=== PATIENT | female | born 1970 | race Caucasian/White ===

== ENCOUNTER 2019-05-26 00:04 | Observation (INO) | payer SELFPAY ==
[2019-05-26 01:29] LABS: Hemoglobin 10.9 g/dL (12.0-16.0); Mean Corpuscular HGB CONC 31.7 g/dL (32.0-36.0); Mean Corpuscular Hemoglobin 24.5 pg (27.0-31.0); Mean Corpuscular Volume 77.3 fL (78.0-98.0); Mean Platelet Volume 7.9 fL (7.4-10.4); Platelet Count 511 thou/uL (130-400); Red Blood Cell (RBC) Count 4.46 mill/uL (4.20-5.40); White Blood Cell (WBC) Count 10.8 thou/uL (4.8-10.8)
[2019-05-26 01:35] LABS: Band 17 % (5-11); Eosinophils 1 % (0-10); Lymphocytes 19 % (21-51); MDiff Complete? YES; Monocytes 9 % (0-10); Neutrophil 54 % (42-75); Platelet Morphology Comment Appears Increased
[2019-05-26 01:44] LABS: Acetaminophen Less than 6.0 mcg/mL (10.0-30.0); Alcohol Less than 10 mg/dL (Less than 10); Salicylate Less than 8.0 mg/dL (15.0-30.0)
[2019-05-26 01:46] LABS: ALT (SGPT) 15 U/L (8-55); AST (SGOT) 19 U/L (5-34); Albumin 2.6 g/dL (3.5-5.0); Alkaline Phosphatase 130 U/L (40-110); Anion Gap 15 mmol/L (10-20); BUN (Urea Nitrogen) 24 mg/dL (7.0-18.7); Bilirubin, Total 0.5 mg/dL (0.2-1.2); CK (CPK) 35 U/L (29-168); Calc. Creatinine Clearance 0 mL/min (70-130); Calcium 8.3 mg/dL (7.8-10.44); Carbon Dioxide 27 mmol/L (22-29); Chloride 89 mmol/L (98-107); Estimated GFR-MDRD 54; Globulin 3.2 g/dL (2.4-3.5); Glucose 108 mg/dL (70-105); Lipase 50 U/L (8-78); Protein, Total 5.8 g/dL (6.0-8.3); Sodium 128 mmol/L (136-145)
[2019-05-26 01:55] LABS: Potassium 2.7 mmol/L (3.5-5.1)
[2019-05-26] MEDS ORDERED: Potassium Chloride 20 MEQ TAB ONE (02:18)
[2019-05-26] MEDS ORDERED: Potassium Chloride 20 MEQ in Premix Bag 1 BAG IVPB SCH (02:30)
[2019-05-26] MEDS ORDERED: traMADol HCl 50 MG TAB ONE (04:13)
[2019-05-26 04:16] LABS: Bacteria/HPF 3+ HPF (None Seen); Bilirubin Negative (Negative); Blood, Urine Negative (Negative); Clarity Turbid (Clear); Glucose, Urine (Dipstick) Normal (Negative); Leukocyte 250 Leu/uL (Negative); Nitrite Negative (Negative); Protein, Urine (Dipstick) Negative (Neg-Trace); RBC/HPF 0-3 HPF (0-3); Urobilinogen Normal mg/dL (Less than 2); WBC/HPF None Seen HPF (0-3); Waxy Cast 0-3 LPF (None Seen)
[2019-05-26 04:17] LABS: Calcium Oxalate Crystals Rare HPF (None Seen)
[2019-05-26 04:18] LABS: Pregnancy Test - Urine (BHCG) Negative (Negative); Pregu Control Background? CLEAR/WHITE (CLR/WHITE); Pregu Control Bar Appear? YES (CONTROL BAR); Specific Gravity 1.008 (1.002-1.036)
[2019-05-26 04:26] LABS: Medtox Reader # READER 4
[2019-05-26 04:27] LABS: Amphetamine Detected (NotDetected); Barbiturates Screen Not Detected (NotDetected); Benzodiazepine Screen Not Detected (NotDetected); Cocaine Metabolite Screen Not Detected (NotDetected); Medtox Control Line Valid? VALID (VALID); Methadone Not Detected (NotDetected); Methamphetamine Not Detected (NotDetected); Opiate Screen Not Detected (NotDetected); Oxycodone Screen Not Detected (NotDetected); Phencyclidine (PCP) Not Detected (NotDetected); THC/Cannabinoid Screen Not Detected (NotDetected); Tricyclic Screen Not Detected (NotDetected)
[2019-05-26] MEDS ORDERED: Acetaminophen 500 MG TAB PO PRN (05:15)
[2019-05-26] MEDS ORDERED: hydrALAZINE 20 MG/ML VIAL SLOW IVP PRN (05:15)
[2019-05-26] MEDS ORDERED: Ondansetron ODT 4 MG TAB PO PRN (05:15)
[2019-05-26] MEDS ORDERED: Ondansetron PF 4 MG/2 ML Vial IVP PRN (05:15)
[2019-05-26] MEDS ORDERED: Loperamide HCl 2 MG CAP PO PRN ×2 (05:15)
[2019-05-26] MEDS: NS 0.9% w/ 40 MEQ KCL 1,000 ML IV SCH ×2 (06:45→15:14)
[2019-05-26] MEDS: cefTRIAXone\\ROCEPHIN 1 GM in Sodium Chloride 0.9% 100 ML IVPB SCH (06:46)
--- NOTE | 2019-05-26 07:26 | RAD ---
XR Shoulder Lt 3 View STANDARD History: Shoulder pain Comparison: None. Findings: No acute fracture or malalignment. Low-grade degenerative disease acromioclavicular joint. Soft tissues are unremarkable. Impression: No acute osseous abnormality.
--- NOTE | 2019-05-26 07:26 | RAD ---
XR Chest 1 View Portable History: Chest pain Comparison: None. Findings: Lungs are clear. No pneumothorax or effusion. Cardiac silhouette and mediastinal contours a re within normal limits. No acute osseous normality. Impression: No acute intrathoracic abnormality.
[2019-05-26 07:43] VITALS: BMI 28.9
[2019-05-26 08:32] LABS: Hemoglobin 9.7 g/dL (12.0-16.0); Mean Corpuscular HGB CONC 31.8 g/dL (32.0-36.0); Mean Corpuscular Hemoglobin 24.8 pg (27.0-31.0); Mean Corpuscular Volume 77.9 fL (78.0-98.0); Mean Platelet Volume 7.5 fL (7.4-10.4); Platelet Count 418 thou/uL (130-400); RBC Distribution Width 16.9 % (11.5-14.5); Red Blood Cell (RBC) Count 3.91 mill/uL (4.20-5.40); White Blood Cell (WBC) Count 5.9 thou/uL (4.8-10.8)
[2019-05-26 08:51] LABS: ALT (SGPT) 12 U/L (8-55); AST (SGOT) 14 U/L (5-34); Albumin 2.2 g/dL (3.5-5.0); Alkaline Phosphatase 121 U/L (40-110); Anion Gap 11 mmol/L (10-20); BUN (Urea Nitrogen) 16 mg/dL (7.0-18.7); Bilirubin, Total 0.2 mg/dL (0.2-1.2); Calc. Creatinine Clearance 97 mL/min (70-130); Calcium 7.5 mg/dL (7.8-10.44); Carbon Dioxide 23 mmol/L (22-29); Chloride 96 mmol/L (98-107); Estimated GFR-MDRD 73; Globulin 2.7 g/dL (2.4-3.5); Glucose 124 mg/dL (70-105); Potassium 3.1 mmol/L (3.5-5.1); Protein, Total 4.9 g/dL (6.0-8.3); Sodium 127 mmol/L (136-145)
[2019-05-26 09:15] LABS: Anisocytosis MODERATE=16-30 cells (100X) (0-5/hpf); Band 2 % (5-11); Hypochromia SLIGHT = 6-15 cells (100X) (0-5/hpf); Lymphocytes 26 % (21-51); MDiff Complete? YES; Microcytosis MODERATE=15-30 cells (100X) (0-5/hpf); Monocytes 12 % (0-10); Neutrophil 58 % (42-75); Platelet Morphology Comment Appears Increased; Polychromasia SLIGHT = 2-3 cells (100X) (0-2/hpf); Reactive Lymphocytes 2 % (0-10); Schistocytes SLIGHT = 2-5 cells (100X) (0-1/hpf)
[2019-05-26] MEDS: Famotidine 20 MG TAB PO SCH ×2 (09:46→20:55)
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
[2019-05-26] MEDS: Potassium Chloride 20 MEQ TAB PO SCH ×2 (15:16→18:36)
--- NOTE | 2019-05-26 18:50 | CON ---
DATE OF CONSULTATION: 05/26/2019 SERVICE: Nephrology. REQUESTING PHYSICIAN: Dr. Tatiana Haney. REASON FOR CONSULTATION: Hyponatremia and hypokalemia. HISTORY OF PRESENT ILLNESS: A 48-year-old female with past medical history significant for diabetes, hypertension, fibromyalgia, and attention deficit hyperactivity disorder amongst other, who was admitted to the hospital due to worsening generalized weakness and difficulty ambulating. The patient reportedly overdosed on metoprolol on April, which had required hospitalization in another hospital with treatment with epinephrine. The patient reported diarrhea illness with hematochezia, following which she has been having frequent loose stools up to 7 times a day associated with generalized weakness. The patient also reported nausea and vomiting, but denied hematemesis. The patient overdosed on metoprolol in a suicide attempt. She reported that she left hospital against medical advice, was readmitted and finally was admitted to [facility], from where she was discharged on May 24. She left [place] to come and stay with a relative here, following which she was weak and unable to ambulate, hence brought to the hospital. She also reported that while in the [facility], she was unable to ambulate due to generalized weakness and was moving around with a wheelchair. She also admitted to lower abdominal pain, but denied fever, chest pain, palpitation, or shortness of breath. The patient admitted to depression, but denied suicide ideation at the moment. PAST MEDICAL HISTORY: 1. Type 2 diabetes mellitus. 2. Hypertension. 3. Fibromyalgia. 4. Diabetic peripheral neuropathy. 5. Autoimmune skin disease. 6. Anxiety. 7. Depression. 8. Attention deficit hyperactivity disorder. 9. Panic attack. 10. Obesity, status post gastric bypass. 11. Incisional hernia. 12. Cholecystitis. 13. Chronic debilitation. 14. Suicide attempt with intentional overdose on metoprolol. PAST SURGICAL HISTORY: 1. Gastric bypass. 2. Incisional hernia repair. 3. Cholecystectomy. 4. x2. 5. Tubal ligation and reversal. FAMILY HISTORY: Reported diabetes and chronic diarrhea in father. Mother at 81, she had jo aneurysm however. Brother had renal disease, heart failure, and drug abuse, and a sister had GI issues, diabetes, and hypertension. SOCIAL HISTORY: The patient currently lives with [id number] here in [place]. She used to live with her and children prior to relocation recently. She denied smoking, alcohol, or recreational drug abuse. She however dipped tobacco up until May 06. ALLERGIES: 1. CONTRAST. 2. PENICILLIN. 3. SULFA. 4. REGLAN. 5. QUERY TYLENOL. CURRENT HOME MEDICATIONS: 1. Bupropion 150 mg p.o. daily. 2. Dextroamphetamine/amphetamine 40 mg p.o. daily. 3. Cymbalta 60 mg p.o. daily. 4. Glyburide 2.5 mg p.o. daily. 5. Lisinopril and hydrochlorothiazide 20/12.5 one tablet p.o. b.i.d. 6. Metoprolol succinate 100 mg daily. 7. Tizanidine 4 mg p.o. daily at bedtime. 8. Tramadol 50 mg p.o. daily at bedtime. REVIEW OF SYSTEMS: A 12-point review of system performed, was negative other than pertinent positives and negatives included in history of present illness. PHYSICAL EXAMINATION: VITAL SIGNS: Temperature 98.6, pulse 107, respiratory rate 18, SpO2 of 98 on room air, blood pressure is 96/68. GENERAL: Middle-aged female, in no obvious distress. The patient is anxious, however. Afebrile, anicteric, and acyanotic. HEENT: Normocephalic and atraumatic. Oral mucosa is moist. NECK: Supple and nontender with good range of motion. No masses or lymphadenopathy or JVD appreciated. CARDIOVASCULAR: Regular rhythm and rate with normal heart sounds 1 and 2. RESPIRATORY: Good air entry bilaterally with no crackle or rhonchi or use of accessory muscles. GI: Full, soft, nondistended with normal bowel sounds. Mild lower abdominal tenderness noted. EXTREMITIES: Grossly normal looking, atraumatic with no edema or erythema. Distal pulses are palpable. PIPE RECOVERY SPECIALIST: Conscious, alert, oriented x3 with appropriate mental status. Cranial nerves 2 through 12 are grossly intact. The patient moves all extremities. PSYCHIATRIC: The patient is anxious, but cooperative. Denied suicide ideation at this time. DIAGNOSTIC DATA: CBC earlier today showed WBC count of 5.8, hemoglobin of 9.7, MCV of 77.9, platelets of 418. Of note, on presentation at 1 a.m. earlier today, WBC was 10.8, hemoglobin 10.9, MCV 77.3, and platelets 511. CMP at 7 a.m. today showed sodium 127, potassium 3.1, chloride 96, CO2 of 23, BUN 16, creatinine 0.83, glucose 124, calcium 7.5, total bilirubin 0.2, AST 14, ALT 12, alkaline phosphatase 121, total protein 4.9, albumin 2.2, globulin 2.7. Earlier on presentation at 1 a.m. on May 26, showed sodium 128, potassium 2.7, chloride 89, CO2 of 27, BUN 24, creatinine 1.09, glucose 108, calcium 8.3, total bilirubin 0.5, AST 19, ALT 15, alkaline phosphatase 130, total protein 5.8, albumin 2.6, globulin 3.2. Cardiac markers showed CK on presentation 35, troponin on presentation 0.010. Magnesium 2.1. Urinalysis showed light yellow urine with pH of 5.5; specific gravity of 1.008; negative protein, ketone, blood, nitrite, bilirubin. Leukocyte esterase was positive, however. Microscopy showed 0 to 3 rbc's and 0 wbc. Of note, squamous cell was 11 to 20, and bacteria was 3+. Toxicology showed less than 8 salicylate, less than 6 acetaminophen, and less than 10 alcohol. Urine drug screen, however, was positive for amphetamine, but otherwise unremarkable. Chest x-ray showed clear lungs with no pneumothorax or effusion. Cardiac silhouette and mediastinal contours are within normal limits and there was no acute osseous abnormality. ASSESSMENT: 1. Hyponatremia: Etiology is unclear, but given history of nausea and vomiting and use of thiazide diuretics, this maybe a mixed picture with appropriate ADH from volume contraction superimposed on hyponatremia from inappropriate ADH secretion due to thiazide diuretics. Also, the patient has hypokalemia, which will disrupt renal concentrating ability. 2. Hypokalemia: Due to thiazide diuretic and poor oral intake as well as frequent loose stool. 3. Persistent frequent loose stools: This reportedly started after intentional overdose with metoprolol. Colitis is a concern. The patient however has microcytic anemia and she admitted to hematochezia. One wonders if the patient has chronic iron-deficiency anemia. 4. Microcytic anemia. 5. Fibromyalgia. 6. Hypertension: Blood pressure currently is on the soft side. 7. Presumed volume depletion, given nausea, vomiting, poor oral intake as well as frequent loose stools. 8. Depression with recent suicide attempt with intentional overdose. PLAN: 1. We will replete serum potassium with potassium chloride. We will give 40 mEq x2, totaling 80 mEq. 2. We will continue IV fluid therapy with normal saline at 125 mL/h. 3. We will also get urine and serum osmolality as well as urine sodium. 4. We will hold antihypertensives for now. 5. We will also get orthostatic vitals. 6. Further treatment to follow depending on review of other diagnostic tests. We will follow along with you. Many thanks for involving us in the care of this patient. Job ID: [id number]
[2019-05-26] MEDS: traMADol HCl 50 MG TAB PO SCH (20:55)
[2019-05-26] MEDS: tiZANidine HCl 4 MG TAB PO SCH (20:56)
[2019-05-26 21:54] LABS: Anion Gap 10 mmol/L (10-20); BUN (Urea Nitrogen) 10 mg/dL (7.0-18.7); Calc. Creatinine Clearance 106 mL/min (70-130); Calcium 7.5 mg/dL (7.8-10.44); Carbon Dioxide 23 mmol/L (22-29); Chloride 103 mmol/L (98-107); Estimated GFR-MDRD 81; Glucose 127 mg/dL (70-105); Potassium 4.1 mmol/L (3.5-5.1); Sodium 132 mmol/L (136-145)
[2019-05-26] MEDS: Sodium Chloride 0.9% 1,000 ML IV SCH (22:27)
[2019-05-27] MEDS: Sodium Chloride 0.9% 1,000 ML IV SCH (01:30)
[2019-05-27 04:38] LABS: Anion Gap 10 mmol/L (10-20); BUN (Urea Nitrogen) 9 mg/dL (7.0-18.7); BUN/Creatinine Ratio 12.68; Calc. Creatinine Clearance 113 mL/min (70-130); Calcium 7.4 mg/dL (7.8-10.44); Carbon Dioxide 23 mmol/L (22-29); Chloride 109 mmol/L (98-107); Estimated GFR-MDRD 88; Glucose 135 mg/dL (70-105); Iron 50 ug/dL (50-170); Iron Binding Capacity, Total 145 mcg/dL (265-497); Phosphorus 2.3 mg/dL (2.3-4.7); Potassium 4.7 mmol/L (3.5-5.1); Sodium 137 mmol/L (136-145)
[2019-05-27 04:45] LABS: Vitamin D, 25 Hydroxy 9.3 ng/ml (> 30.0)
[2019-05-27 05:09] LABS: Ferritin 110.04 ng/mL (10-291)
[2019-05-27] MEDS: cefTRIAXone\\ROCEPHIN 1 GM in Sodium Chloride 0.9% 100 ML IVPB SCH (05:38)
[2019-05-27] MEDS ORDERED: glyBURIDE 2.5 MG TAB PO SCH (07:30)
[2019-05-27] MEDS: DULoxetine 60 MG CAP PO SCH (08:40)
[2019-05-27] MEDS: Bupropion 150 MG XL TAB PO SCH (08:40)
[2019-05-27] MEDS: Famotidine 20 MG TAB PO SCH ×2 (08:40→21:12)
[2019-05-27] MEDS ORDERED: AMPHETAMINE PO SCH (09:00)
[2019-05-27] MEDS ORDERED: DEXTROAMPHETAMINE PO SCH (09:00)
[2019-05-27] MEDS ORDERED: Lactated Ringer's 1,000 ML IV SCH (09:30)
[2019-05-27] MEDS: Lactated Ringer's 1,000 ML IV SCH ×2 (12:19→21:10)
--- NOTE | 2019-05-27 14:57 | PRG ---
DATE OF SERVICE: 05/27/2019 SERVICE: Nephrology. SUBJECTIVE: A 48-year-old female admitted due to generalized weakness and frequent loose stools. Nephrology is following the patient for electrolyte derangements. The patient reported to dizziness and gait instability and was found to have hypotension. Reports feeling better and with steadier gait. However, continues to have frequent loose stools. OBJECTIVE: VITAL SIGNS: Temperature 97.6, pulse 89, respiratory rate 18, SpO2 of 100% on room air, and blood pressure 120/81. GENERAL: Middle-age female, in no distress. Afebrile. Anicteric. Acyanotic. HEENT: Normocephalic and atraumatic. Oral mucosa is moist. CARDIOVASCULAR: Regular rhythm and rate. Normal heart sounds one and two. RESPIRATORY: Good air entry bilaterally with no crackle or rhonchi or use of accessory muscles. GI: Full, soft, nontender, nondistended with normal bowel sounds. EXTREMITIES: Grossly normal looking, atraumatic with no edema or erythema. CHEESEMAKING LABORER: Conscious, alert, oriented x3 with appropriate mental status. DIAGNOSTIC DATA: Renal function panel showed sodium 137, potassium 4.7, chloride 109, CO2 of 23, BUN 9, creatinine 0.71, glucose 135, calcium 7.4, phosphorus 2.3, and albumin 2.0. Vitamin D is 9.3. Iron chemistry showed ferritin 110, iron 50, TIBC 145, and iron saturation 34. Stool occult blood is positive. C diff colitis assay, however, was negative. Stool culture panel is negative for Campylobacter and E coli. ASSESSMENT: 1. Hyponatremia: This is felt to be due to volume depletion with ADH secretion as well as due to use of thiazide diuretics. Resolved with use of IV fluid. 2. Hypotension, persists. 3. Hypokalemia: Repleted with potassium chloride. 4. Frequent loose stools: Etiology is unclear. The patient is status post gastric bypass. Infectious etiology is so far negative. 5. Microscopic anemia: Iron deficiency is a concern, though iron chemistry so far was not consistent. The patient, however, was taking iron tablets. Stool occult blood is positive. 6. History of hypertension: Blood pressure currently is on the low side. 7. Volume depletion due to poor oral intake as well as increased gastrointestinal losses. 8. Depression with recent suicide attempt with intentional overdose on metoprolol. PLAN: 1. We will give a liter bolus of LR to be followed by LR at 100 mL/h. 2. We will start the patient on cholestyramine due to frequent stools. 3. We will monitor electrolytes and replete as needed. 4. Other treatment as per primary attending. Avoid thiazide diuretic at this time as well as other antihypertensives as blood pressure is soft. Job ID: [id number]
--- NOTE | 2019-05-27 18:48 | PRG ---
DATE OF SERVICE: 05/27/2019 SUBJECTIVE: The patient was seen at bedside, had low blood sugars today, but as per the nursing staff, the patient was asymptomatic. The patient says she has diarrhea. Also, feels nauseous. Denies vomiting. Also, complains of abdominal pain. As per the patient, her sugars fluctuate at home. The patient was admitted with electrolyte imbalance and diarrhea. OBJECTIVE: VITAL SIGNS: Blood pressure 120/81, temperature 97.6, pulse 89, respirations 18, oxygen saturation 100%. GENERAL: The patient is lying in bed comfortably, not in any distress. HEENT: Conjunctivae are normal. Oral mucosa is moist. NECK: Supple. No JVD. No lymphadenopathy. CHEST: Normal vesicular breathing. HEART: Sound normal. ABDOMEN: Soft and benign. No tenderness or visceromegaly. EXTREMITIES: Mild edema, right leg. LABORATORY DATA: Blood sugar 50. IMPRESSION AND PLAN: 1. Asymptomatic hypoglycemia. We will discontinue glyburide now. Continue to monitor Gluco Chek q.4 hours hourly. Currently, blood sugar is 116. If the patient has persistent low blood sugar, we will start the patient on dextrose fluids. Possibly, the patient has dumping syndrome status post gastric bypass surgery. As per the patient, her sugars fluctuate after meal intake and then it drops down. Had repeated low blood sugars in the past. We recommend the patient to follow up outpatient with music copyist. We will check a hemoglobin A1c level if the patient really needs antidiabetic medication. 2. Diarrhea with electrolyte imbalance. Continue cholestyramine and Imodium p.r.n. We will order labs for tomorrow. 3. History of recent admission with suicidal ideation and drug abuse. Recommended to follow up outpatient with Psychiatry. Currently, the patient denies any suicidal ideation or intent. 4. History of hypertension. Continue monitoring of blood pressure. 5. Deep venous thrombosis and gastrointestinal prophylaxis. Plan was discussed with the nursing staff in detail. Job ID: [id number]
[2019-05-27] MEDS: traMADol HCl 50 MG TAB PO SCH (21:10)
[2019-05-27] MEDS: tiZANidine HCl 4 MG TAB PO SCH (21:10)
[2019-05-27] MEDS: Cholestyramine/Aspartame 4 gm Packet PO SCH (21:15)
[2019-05-28 04:44] LABS: #Eosinphils 0.1 thou/uL (0.0-0.7); #Lymphocytes 2.1 thou/uL (1.20-3.40); #Monocytes 0.1 thou/uL (0.11-0.59); #Neutrophils 3.5 thou/uL (1.40-6.50); %Basophils 0.2 % (0.0-1.0); %Eosinophils 0.9 % (0.0-10.0); %Lymphocytes 36.8 % (21.0-51.0); %Monocytes 1.5 % (0.0-10.0); %Neutrophils 60.6 % (42.0-75.0); Hemoglobin 8.6 g/dL (12.0-16.0); Mean Corpuscular HGB CONC 31.4 g/dL (32.0-36.0); Mean Corpuscular Volume 79.8 fL (78.0-98.0); Mean Platelet Volume 7.2 fL (7.4-10.4); Platelet Count 348 thou/uL (130-400); RBC Distribution Width 17.2 % (11.5-14.5); Red Blood Cell (RBC) Count 3.42 mill/uL (4.20-5.40); White Blood Cell (WBC) Count 5.7 thou/uL (4.8-10.8)
[2019-05-28 04:50] LABS: Hemoglobin A1c 6.9 % (4.0-6.0)
[2019-05-28 04:57] LABS: Albumin 2.1 g/dL (3.5-5.0); Anion Gap 7 mmol/L (10-20); BUN (Urea Nitrogen) 9 mg/dL (7.0-18.7); BUN/Creatinine Ratio 12.68; Calc. Creatinine Clearance 113 mL/min (70-130); Calcium 7.7 mg/dL (7.8-10.44); Carbon Dioxide 25 mmol/L (22-29); Chloride 106 mmol/L (98-107); Estimated GFR-MDRD 88; Glucose 119 mg/dL (70-105); Phosphorus 2.4 mg/dL (2.3-4.7); Potassium 3.4 mmol/L (3.5-5.1); Sodium 135 mmol/L (136-145)
[2019-05-28] MEDS: cefTRIAXone\\ROCEPHIN 1 GM in Sodium Chloride 0.9% 100 ML IVPB SCH (06:04)
[2019-05-28] MEDS: Lactated Ringer's 1,000 ML IV SCH ×2 (06:04→12:30)
[2019-05-28] MEDS: Bupropion 150 MG XL TAB PO SCH ×2 (09:59→10:49)
[2019-05-28] MEDS: Famotidine 20 MG TAB PO SCH ×2 (09:59→20:59)
[2019-05-28] MEDS: DULoxetine 60 MG CAP PO SCH (09:59)
[2019-05-28] MEDS: Cholestyramine/Aspartame 4 gm Packet PO SCH ×2 (10:00→21:00)
[2019-05-28] MEDS ORDERED: Potassium Chloride 20 MEQ TAB PO SCH (11:15)
--- NOTE | 2019-05-28 18:50 | PDOC.HOSPP ---
- Subjective Encounter Date: 05/28/19 Encounter Time: 14:00 Subjective: pt up in bed complains of diarrhea and vomiting. she feels depressed and does not have a home to go to. she recently [facility] of the [facility] hospital. - Objective Vital Signs & Weight: Vital Signs (12 hours) Temp Pulse Resp BP Pulse Ox 05/28/19 15:53 98.1 F 94 14 147/81 H 100 05/28/19 11:48 98.3 F 96 14 143/88 H 100 05/28/19 08:29 98.0 F 86 14 105/79 100 Weight Admit Weight 163 lb 4 oz Weight 163 lb 4 oz I&O: 05/27/19 05/28/19 05/29/19 06:59 06:59 06:59 Intake Total 3400 Balance 3400 Result Diagrams: 05/28/19 04:31 05/28/19 04:31 Additional Labs: Accuchecks 05/28/19 05/28/19 05/28/19 15:45 10:18 06:18 POC Glucose 74 118 H 76 05/28/19 05/27/19 02:47 22:08 POC Glucose 68 L 112 H Hospitalist ROS - Review of Systems ENT: denies: ear pain, ear discharge, nose pain, nose discharge, nose congestion , mouth pain, mouth swelling, throat pain, throat swelling, other Cardiovascular: denies: chest pain, palpitations, orthopnea, paroxysmal noc. dyspnea, edema, light headedness, other Gastrointestinal: reports: vomiting, diarrhea Genitourinary: denies: dysuria, frequency, incontinence, hematuria, retention, other - Medication Medications: Active Medications Generic Name Dose Route Start Last Admin Trade Name Freq PRN Reason Stop Dose Admin Bupropion HCl 150 mg 05/27/19 09:00 05/28/19 10:49 Wellbutrin Xl PO Not Given DAILY KAREN Cholestyramine Resin 4 gm 05/27/19 22:00 05/28/19 10:00 Questran Light PO 4 gm 1000,2200 KAREN Administration Duloxetine HCl 60 mg 05/27/19 09:00 05/28/19 09:59 Cymbalta PO 60 mg DAILY KAREN Administration Famotidine 20 mg 05/26/19 09:00 05/28/19 09:59 Pepcid PO 20 mg BID KAREN Administration Loperamide HCl 4 mg 05/26/19 05:15 05/28/19 06:04 Imodium PO 06/02/19 05:16 4 mg ONE PRN Administration Diarrhea/Loose Stools Sodium Chloride 10 ml 05/27/19 21:00 05/28/19 10:00 Flush - Normal Saline IVF 10 ml Q12HR KAREN Administration Tizanidine HCl 4 mg 05/26/19 21:00 05/27/19 21:10 Zanaflex PO 4 mg HS KAREN Administration Tramadol HCl 50 mg 05/26/19 21:00 05/27/19 21:10 Ultram PO 50 mg HS KAREN Administration - Exam Heart: negative: RRR, no murmur, no gallops, no rubs, normal peripheral pulses, irregular, diminshed peripheral pulses, murmur present, II/IV, III/IV Respiratory: negative: CTAB, no wheezes, no rales, no ronchi, normal chest expansion, no tachypnea, normal percussion, rales, rhonchi, tachypneic, wheezes Gastrointestinal: soft Gastrointestinal - other findings: mild pain on palpation all over Hosp A/P (1) Hyponatremia Code(s): E87.1 - HYPO-OSMOLALITY AND HYPONATREMIA Status: Acute (2) Nausea & vomiting Code(s): R11.2 - NAUSEA WITH VOMITING, UNSPECIFIED Status: Acute (3) Diarrhea Code(s): R19.7 - DIARRHEA, UNSPECIFIED Status: Acute (4) Depression Code(s): F32.9 - MAJOR DEPRESSIVE DISORDER, SINGLE EPISODE, UNSPECIFIED Status : Acute - Plan pt states that she has been having diarrhea which looks like mucus. I did speak with the sitter who states that the patient has gone to the bathroom only twice and has not been nauseated. Per nursing she has not asked for any nausea medication. Her hyponatremia has resolved, her hctz has been discontinued. i will stop the glyburide due to low blood sugar and put her on metformin. Pt is very unstable will get mental health to see her. Also will get her oral iron since she is anemic. She will need a colonoscopy but as outpatient for her anemia workup. I will add multivit and minerals since she has had a gastric bypass.
[2019-05-28] MEDS: traMADol HCl 50 MG TAB PO SCH (20:59)
[2019-05-28] MEDS: tiZANidine HCl 4 MG TAB PO SCH (20:59)
[2019-05-29 06:40] LABS: Anion Gap 9 mmol/L (10-20); BUN (Urea Nitrogen) 7 mg/dL (7.0-18.7); BUN/Creatinine Ratio 10.77; Calc. Creatinine Clearance 124 mL/min (70-130); Calcium 7.5 mg/dL (7.8-10.44); Carbon Dioxide 22 mmol/L (22-29); Chloride 109 mmol/L (98-107); Estimated GFR-MDRD Greater than 90; Glucose 74 mg/dL (70-105); Magnesium 1.6 mg/dL (1.6-2.6); Phosphorus 2.8 mg/dL (2.3-4.7); Potassium 4.3 mmol/L (3.5-5.1); Sodium 136 mmol/L (136-145)
--- NOTE | 2019-05-29 07:30 | PRG ---
DATE OF SERVICE: 05/28/2019 SERVICE: Nephrology. SUBJECTIVE: A 48-year-old female with multiple comorbidities, admitted due to frequent loose stools associated with generalized weakness. Nephrology is following the patient for multiple electrolyte derangements. The patient reports feeling better, and hypotension and generalized weakness have improved. No fever. No nausea or vomiting, however, continued to have frequent loose stools. OBJECTIVE: VITAL SIGNS: Temperature 98.3, pulse 96, respiratory rate 14, SpO2 of 100% on room air, and blood pressure is 143/88. GENERAL: Comfortable female, in no distress. Afebrile. Anicteric. Acyanotic. HEENT: Normocephalic and atraumatic. Oral mucosa is moist. CARDIOVASCULAR: Regular rhythm and rate with normal heart sounds 1 and 2. RESPIRATORY: Good air entry bilaterally with no crackle or rhonchi or use of accessory muscles. GI: Obese, soft, nontender, nondistended with normal bowel sounds. EXTREMITIES: Grossly normal looking, atraumatic with no edema or erythema. DIAGNOSTIC DATA: CBC showed WBC count of 5.7, hemoglobin of 8.6, MCV of 79.8, and platelets of 348. Renal function panel showed sodium of 135, potassium 3.4, chloride 106, CO2 of 25, BUN 9, creatinine 0.71, glucose 119, calcium 7.7, phosphorus 2.4, and albumin 2.1. Creatinine has gone down from admission level of 1.09 to 0.71. ASSESSMENT: 1. Acute kidney injury: Due to volume depletion from poor oral intake and increased losses in GI and frequent loose stools. Resolved with IV fluid therapy. 2. Hypokalemia. Improved. Recurrent due to persistent frequent loose stools. 3. Hypotension: Due to volume depletion. Improved with fluid resuscitation. Still off antihypertensives. 4. Volume depletion: Due to GI losses. 5. Hypoalbuminemia. 6. Microcytic anemia: Acute drop in hemoglobin from 10 to 7.9 is due to correction of hemoconcentration. Chronic gastrointestinal bleeding cannot be ruled out as the patient reported hematochezia in the other hospital prior to this admission. PLAN: 1. Continue to hold antihypertensives. 2. Replete serum potassium with potassium chloride. 3. Start daily oral supplementation with potassium chloride 40 mEq daily. 4. Discontinue IV fluid therapy. 5. [place] oral intake advised. 6. Treatment of diarrhea as per primary attending. 7. We will sign off at this time as there is no acute problem. Please call for any clarification or questions. Job ID: [id number]
[2019-05-29] MEDS ORDERED: metFORMIN 500 MG TAB PO SCH (08:00)
[2019-05-29] MEDS ORDERED: Potassium Chloride 20 MEQ TAB PO SCH (08:00)
[2019-05-29 08:54] VITALS: BP 142/89; TEMP 97.8
[2019-05-29] MEDS ORDERED: Multivitamin W/ Minerals 1 TAB PO SCH (09:00)
[2019-05-29] MEDS ORDERED: Cholecalciferol (Vitamin D3) 400 UNITS TAB PO SCH (09:00)
[2019-05-29] MEDS ORDERED: Nystatin 500,000 UNITS/5 ML UDCUP SSP SCH (09:00)
[2019-05-29] MEDS ORDERED: Ergocalciferol 1.25 MG(50,000 UNITS) CAP PO SCH (09:00)
[2019-05-29] MEDS: Bupropion 150 MG XL TAB PO SCH (09:23)
[2019-05-29] MEDS: Famotidine 20 MG TAB PO SCH (09:26)
[2019-05-29] MEDS: DULoxetine 60 MG CAP PO SCH (09:26)
[2019-05-29 09:48] LABS: Hemoglobin 9.5 g/dL (12.0-16.0)
--- NOTE | 2019-05-29 12:49 | EKG ---
Test Reason : Blood Pressure : / mmHG Vent. Rate : 096 BPM Atrial Rate : 096 BPM P-R Int : 140 ms QRS Dur : 084 ms QT Int : 330 ms P-R-T Axes : 045 -01 025 degrees QTc Int : 416 ms Normal sinus rhythm Normal ECG When compared with ECG of 26-MAY-2019 01:24, (Unconfirmed) QT has shortened Confirmed by DR. Aleshia LOWERY ([id number]) on 05/29/2019 12:48:49 PM Referred By: SAMINA Confirmed By:DR. Aleshia LOWERY
--- NOTE | 2019-05-29 14:18 | DIS ---
DATE OF ADMISSION: 05/26/2019 DATE OF DISCHARGE: 05/29/2019 DISCHARGE DIAGNOSES: As of the following. 1. Nausea, vomiting, diarrhea. 2. Chronic anemia. 3. History of gastric bypass. 4. Depression and suicidal thoughts. 5. Recent hospitalization for overdose. 6. Hyponatremia. 7. Low vitamin D. HOSPITAL COURSE: The patient is a 48-year-old female, who presented initially to the hospital with complaints of nausea, vomiting, and diarrhea. She did have stool studies, which were completely negative. She has been able to tolerate her meals without any difficulty and has not required any antiemetics. She was initially seen in [facility] in [place] multiple times and was asked to undergo a colonoscopy, however, she signed out AMA x2. She then overdosed on metoprolol and then at that time, she was initially admitted to the hospital, medically cleared and then sent to a psych facility. However, when she left the psych facility the next day, she came back to the hospital with nausea, vomiting, and diarrhea. As I mentioned earlier, all her stool studies are negative. I did speak with the sitter, who was at the bedside, who was with her the whole day and the patient had gone to the bathroom only twice to urinate. According to nursing staff, she has not required any antiemetics and she has been able to tolerate her meal without any difficulty. She however does eat small meals and not as much. However, she is able to tolerate them. I did ask her if she takes any multivitamin or minerals, she states yes, but I do not see any on her medication list. Her iron studies were checked. Her iron was borderline at 50. I will put her on some iron and with some medications to prevent constipation. I have told her and the psychiatric physician that I gave report to that the patient will require an outpatient GI workup, however, at this time she is stable. Her hyponatremia has resolved. She was seen by Nephrology. Initial sodium was 127, improved to 135. Hyponatremia was thought to be secondary to possible a little bit of dehydration and also she was on hydrochlorothiazide. Her hydrochlorothiazide has been discontinued. She is going to be transferred to inpatient psychiatry. She will require follow up with GI as an outpatient. PHYSICAL EXAMINATION: VITAL SIGNS: As of the following; temperature 97.8, pulse 86, respirations 16, 98% on room air, blood pressure 142/89. GENERAL: She is awake, alert, and oriented x3. Does not appear in distress. HEENT: Normocephalic, atraumatic. No lymphadenopathy noted. Pupils are equal and reactive to light. CV: S1 and S2 present. No murmurs, rubs, or gallops. ABDOMEN: Soft and nontender. Bowel sounds are present x2. Again, she will be discharged to inpatient psych and she will follow up with her primary and GI as outpatient. HOME MEDICATIONS: As of the following. 1. She is going to be on lisinopril 20 mg daily. 2. She is going to be on Colace 100 mg daily. 3. Ergocalciferol 1.25 every 7 days. 4. Ferrous gluconate 324 p.o. daily. 5. Lisinopril as I mentioned earlier. 6. Imodium 2 mg as needed. 7. Metoprolol 50 mg. I decreased this dose from 100 to 50 mg. 8. Multivitamin one tab p.o. daily. 9. Metformin 500 mg daily. She was on glyburide. Due to her hypoglycemia, I have discontinued that and put her on metformin. Her hemoglobin A1c was 6.9, and this may be titrated up as needed. 10. Duloxetine 1 tab p.o. daily. 11. Tizanidine one at bedtime. 12. Tramadol at bedtime as needed. 13. Bupropion one tab p.o. daily. Again, she will be discharged to psych facility and she will follow up with GI and primary care. Job ID: [id number]
[2019-05-30] MEDS ORDERED: Ferrous Gluconate 324 MG TAB PO SCH (08:00)
== END 2019-05-29 11:56 ==
LOC: ERS 00:04 → SURG A 04:56
PROVIDERS: ADMIT Family Medicine; ATTEND Family Medicine
DX: E87.1 Hypo-osmolality and hyponatremia (principal); R11.2 Nausea with vomiting, unspecified; R19.7 Diarrhea, unspecified; E87.6 Hypokalemia; I10 Essential (primary) hypertension; E11.42 Type 2 diabetes mellitus with diabetic polyneuropathy; M79.7 Fibromyalgia; F41.9 Anxiety disorder, unspecified; F32.9 Major depressive disorder, single episode, unspecified; F90.9 Attention-deficit hyperactivity disorder, unspecified type; R45.851 Suicidal ideations; E55.9 Vitamin D deficiency, unspecified; R53.1 Weakness; M35.8 Other specified systemic involvement of connective tissue; D50.9 Iron deficiency anemia, unspecified; I95.9 Hypotension, unspecified; E11.649 Type 2 diabetes mellitus with hypoglycemia without coma; N17.9 Acute kidney failure, unspecified; E88.09 Other disorders of plasma-protein metabolism, not elsewhere classified; E86.9 Volume depletion, unspecified; Z87.891 Personal history of nicotine dependence; Z79.84 Long term (current) use of oral hypoglycemic drugs; Z79.899 Other long term (current) drug therapy; Z88.0 Allergy status to penicillin; Z88.2 Allergy status to sulfonamides; Z88.8 Allergy status to other drugs, medicaments and biological substances; Z98.84 Bariatric surgery status
CPT/HCPCS: 36415; 36416; 71045; 80053; 80069; 80306; 80307; 81003; 81015; 81025; 82274; 82306; 82550; 82607; 82728; 83036; 83540; 83550; 83690; 83735; 83930; 83935; 84300; 84443; 84484; 85014; 85018; 85025; 85060; 87015; 87040; 87045; 87046; 87086; 87206; 87324; 87328; 87329; 87427; 87449; 90471; 90732; 93005; 93010; 96361; 96365; 96366; 96375; 96376; G0009; G0378; J0696; J3480; J3490

== ENCOUNTER 2019-06-06 13:41 | Inpatient (IN) | payer SELFPAY ==
[2019-06-06] MEDS ORDERED: Iopamidol 370 76% 50 ML VIAL FS ONE (14:25)
[2019-06-06 14:42] LABS: #Lymphocytes 2.6 thou/uL (1.20-3.40); #Monocytes 0.6 thou/uL (0.11-0.59); #Neutrophils 2.8 thou/uL (1.40-6.50); %Basophils 0.6 % (0.0-1.0); %Eosinophils 0.3 % (0.0-10.0); %Lymphocytes 43.5 % (21.0-51.0); %Neutrophils 45.6 % (42.0-75.0); Hemoglobin 9.6 g/dL (12.0-16.0); Mean Corpuscular HGB CONC 31.3 g/dL (32.0-36.0); Mean Corpuscular Hemoglobin 25.5 pg (27.0-31.0); Mean Corpuscular Volume 81.6 fL (78.0-98.0); Mean Platelet Volume 7.3 fL (7.4-10.4); Platelet Count 382 thou/uL (130-400); Red Blood Cell (RBC) Count 3.77 mill/uL (4.20-5.40)
[2019-06-06 14:57] LABS: BHCG - Serum Negative (NEGATIVE); Pregs Control Background? CLEAR/WHITE (CLR/WHITE); Pregs Control Bar Appear? YES (CONTROL BAR)
--- NOTE | 2019-06-06 14:57 | RAD ---
Portable frontal chest radiograph: 06/06/2019 COMPARISON: 05/26/2019 HISTORY: Left-sided flank pain FINDINGS: Lungs are clear. Heart and mediastinal contours appear within normal limits. Clips in the r ight upper quadrant suggest prior cholecystectomy. IMPRESSION: No acute findings.
[2019-06-06 15:05] LABS: ALT (SGPT) 16 U/L (8-55); AST (SGOT) 15 U/L (5-34); Albumin 2.4 g/dL (3.5-5.0); Alkaline Phosphatase 177 U/L (40-110); Anion Gap 5 mmol/L (10-20); BUN (Urea Nitrogen) 11 mg/dL (7.0-18.7); Bilirubin, Total 0.2 mg/dL (0.2-1.2); Calc. Creatinine Clearance 0 mL/min (70-130); Calcium 8.2 mg/dL (7.8-10.44); Carbon Dioxide 32 mmol/L (22-29); Chloride 103 mmol/L (98-107); Estimated GFR-MDRD 80; Globulin 3.2 g/dL (2.4-3.5); Glucose 91 mg/dL (70-105); Lipase 7 U/L (8-78); Potassium 3.4 mmol/L (3.5-5.1); Protein, Total 5.6 g/dL (6.0-8.3); Sodium 137 mmol/L (136-145)
[2019-06-06 15:06] LABS: Bilirubin Negative (Negative); Blood, Urine Negative (Negative); Clarity Clear (Clear); Glucose, Urine (Dipstick) 50 mg/dL (Negative); Leukocyte Negative Leu/uL (Negative); Nitrite Negative (Negative); Protein, Urine (Dipstick) Negative (Neg-Trace); Urobilinogen Normal mg/dL (Less than 2)
[2019-06-06] MEDS ORDERED: Ondansetron PF 4 MG/2 ML Vial ONE ×2 (15:21)
--- NOTE | 2019-06-06 16:02 | CT ---
CT ABDOMEN AND PELVIS WITHOUT CONTRAST: 06/06/19 INDICATION: Abdominal pain. FINDINGS: The imaged lung bases reveal mild atelectasis, dependently. Evidence of prior cholecystectomy and gas tric surgery. There are nondilated contrast opacified small bowel loops. No pneumoperitoneum or ascit es. There is moderate retained fecal material of the colon. High density of the bilateral medullary r egions of each kidney may be on the basis of nephrocalcinosis. Limited evaluation of solid abdominal organs, bowel, lymph nodes, vasculature on the basis of noncontrast technique. No acute osseous patho logy. Within the left abdomen, there is inflamed colon from the level of the distal transverse colon, trave rsing the splenic flexure and descending to the mid left hemicolon just proximal to the site of infla mmation, within the transverse colon to the left of midline there is a focal, patulous region of stoo l filled colon. Pericolonic fat stranding of the left abdomen is present. There is a diverticulum wit h concretion of a small volume of barium although the remainder of the inflamed colon is free from di verticular disease. IMPRESSION: Evidence of acute colitis spanning the distal transverse colon through the mid descending colon. Isch emic process should be excluded clinically, given the localized distribution. Alternatively, inflamm atory bowel disease, or localized infectious colitis. Recommend clinical correlation in this regard. Telephone call to patient's physician, Tristian Wills, performed at 1550 hours, 06/06/19. Code CR
[2019-06-06] MEDS ORDERED: metroNIDAZOLE 500 MG/100 ML BAG ONE (16:41)
[2019-06-06] MEDS ORDERED: Morphine 2 MG/ML SYRINGE SLOW IVP SCH (20:15)
[2019-06-06] MEDS ORDERED: Ondansetron PF 4 MG/2 ML Vial IVP PRN (20:18)
[2019-06-06] MEDS ORDERED: D5 1/2 NS w/20 mEq KCL 1,000 ML IV SCH (20:18)
[2019-06-06] MEDS ORDERED: Ondansetron ODT 4 MG TAB SL PRN (20:18)
[2019-06-06 20:20] LABS: Lactic Acid 1.8 mmol/L (0.5-2.2)
[2019-06-06 20:23] LABS: Amphetamine Detected (NotDetected); Barbiturates Screen Not Detected (NotDetected); Benzodiazepine Screen Not Detected (NotDetected); Cocaine Metabolite Screen Not Detected (NotDetected); Medtox Control Line Valid? VALID (VALID); Medtox Reader # READER 1; Methadone Not Detected (NotDetected); Methamphetamine Not Detected (NotDetected); Opiate Screen Not Detected (NotDetected); Oxycodone Screen Not Detected (NotDetected); Phencyclidine (PCP) Not Detected (NotDetected); THC/Cannabinoid Screen Not Detected (NotDetected); Tricyclic Screen Not Detected (NotDetected)
[2019-06-06] MEDS ORDERED: Loperamide HCl 2 MG CAP PO PRN (20:56)
[2019-06-06] MEDS ORDERED: Morphine 2 MG/ML SYRINGE SLOW IVP PRN (21:02)
--- NOTE | 2019-06-06 21:12 | PDOC.HHP ---
Hospitalist HPI - History of Present Illness abdominal pain History of Present Illness: This is a 48 year old female with IBS, depression, fibromyalgia, hypertension, diabetes who presented with left flank pain that started this morning. Patient states her pain is a 10/10 in the left flank and radiating to her back. Her pain is constant, relieved with tizanidine and ibuprofen. She is unsure of exacerbating factors. She describes the pain as a sharp internal pain that's throbbing and makes her want to cry. She feels the pain is like that of a kidney stone. Her pain is associated with dry heaves. She was recently discharged from the hospital on May 29 where she was worked up for chronic diarrhea. Stool cultures were negative for E coli, Campylobacter, Cryptosporidium, Giardia and C diff. During that hospitalization patient had episodes of hypotension and hypoglycemia which required a reduction in her metoprolol dose and discontinuation of her glyburide. The patient has not been taking her diabetes or blood pressure medications since she lives in a motel and only has access to a few medications. She denies fevers or chills but has a mild sore throat. She denies chest pain or shortness of breath and says she had a recent negative stress test. Additionally patient reports a recent suicide attempt where she overdosed on metoprolol. During that admission she was told to get a GI workup as an outpatient but she refused due to some personal problems. Now she is currently willing to undergo that. ED Course: In the ER, vitals were unremarkable. Serum lactate was noted to be 2.6. She was given 1L normal saline with improvement in her lactate to 1.8. The patient had a CT scan of her abdomen which showed acute colitis spanning distal transverse colon through the mid descending colon. She was given IV flagyl and IV levaquin in the ER. The patient continues to report 10/10 abdominal pain, states she is unable to get comfortable in the bed. Hospitalist ROS - Review of Systems Constitutional: denies: fever, chills, sweats Eyes: denies: vision change Respiratory: denies: cough, dry, shortness of breath Cardiovascular: denies: chest pain, palpitations, orthopnea Gastrointestinal: reports: nausea, abdominal pain. denies: vomiting, diarrhea Genitourinary: denies: dysuria, frequency, incontinence Skin: denies: rash, lesions, darryn, bruising Neurological: denies: weakness, numbness, incoordination - Medication Medications: Active Medications Generic Name Dose Route Start Last Admin Trade Name Thao PRN Reason Stop Dose Admin Morphine Sulfate 2 mg 06/06/19 20:15 06/06/19 20:16 Morphine SLOW IVP 06/06/19 22:00 2 mg NOW KAREN Administration Hospitalist History - Past Medical History Cardiac: reports: HTN Gastrointestinal: reports: Irritable bowel disease Psych: reports: Anxiety, Depression Endocrine: reports: Diabetes - Past Surgical History Other Surgical History: Gastric bypass 2002 Hernia repair Cholecystectomy - Family History Other Family History: Father of renal failure from diabetes Mother had intracranial aneurysm - Social History Smoking Status: Never smoker Tobacco Type: chewing tobacco (since she was a kid) Alcohol: reports: None Drugs: reports: none Activity level: independent ambulation - Exam General Appearance: NAD, awake alert General - other findings: Patient appears restless in bed Eye: PERRL, anicteric sclera ENT: normocephalic atraumatic, no oropharyngeal lesions Neck: supple, symmetric, no JVD, no thyromegaly Heart: RRR, no murmur, no gallops, no rubs Respiratory: CTAB, no wheezes, no rales, no ronchi Gastrointestinal: soft, non-distended, normal bowel sounds. negative: no guarding, no rigidity Gastrointestinal - other findings: Left CVA tenderness. RUQ and LUQ tenderness to deep palpation Extremities: no cyanosis, no clubbing, no edema Skin: normal turgor, no lesions, no rashes Neurological: cranial nerve grossly intact, normal sensation to touch, no focal deficits, no new deficit Musculoskeletal: normal tone, normal strength, no muscle wasting Psychiatric: normal affect, normal behavior, A&O x 3, oriented to person, oriented to place Hospitalist Results - Labs Result Diagrams: 06/06/19 14:32 06/06/19 14:32 Lab results: WBC 6.0 thou/uL (4.8-10.8) 06/06/19 14:32 Hgb 9.6 g/dL (12.0-16.0) L 06/06/19 14:32 Hct 30.8 % (36.0-47.0) L 06/06/19 14:32 MCV 81.6 fL (78.0-98.0) 06/06/19 14:32 Plt Count 382 thou/uL (130-400) 06/06/19 14:32 Neutrophils % 45.6 % (42.0-75.0) 06/06/19 14:32 Sodium 137 mmol/L (136-145) 06/06/19 14:32 Potassium 3.4 mmol/L (3.5-5.1) L 06/06/19 14:32 Chloride 103 mmol/L (98-107) 06/06/19 14:32 Carbon Dioxide 32 mmol/L (22-29) H 06/06/19 14:32 BUN 11 mg/dL (7.0-18.7) 06/06/19 14:32 Creatinine 0.77 mg/dL (0.6-1.1) 06/06/19 14:32 Glucose 91 mg/dL (70-105) 06/06/19 14:32 Lactic Acid 1.8 mmol/L (0.5-2.2) 06/06/19 19:43 Calcium 8.2 mg/dL (7.8-10.44) 06/06/19 14:32 Total Bilirubin 0.2 mg/dL (0.2-1.2) 06/06/19 14:32 AST 15 U/L (5-34) 06/06/19 14:32 ALT 16 U/L (8-55) 06/06/19 14:32 Alkaline Phosphatase 177 U/L (40-110) H 06/06/19 14:32 Troponin I Less than 0.010 ng/mL (< 0.028) 06/06/19 14:32 Serum Total Protein 5.6 g/dL (6.0-8.3) L 06/06/19 14:32 Albumin 2.4 g/dL (3.5-5.0) L 06/06/19 14:32 Lipase 7 U/L (8-78) L 06/06/19 14:32 Urine Ketones Negative mg/dL (Negative) 06/06/19 Unknown Urine Blood Negative (Negative) 06/06/19 Unknown Urine Nitrite Negative (Negative) 06/06/19 Unknown Ur Leukocyte Esterase Negative Matthieu/uL (Negative) 06/06/19 Unknown - EKG Interpretation EKG: EKG: normal sinus rhythm, nonspecific T wave abnormality Hospitalist H&P A/P - Plan Plan: CT abdomen: evidence of acute colitis spanning the distal transverse colon through the mid descending colon. Ischemic process shojuld be excluded clinically Chest X ray: no acute disease This is a 48 year old female with past medical history of IBS, depression, fibromyalgia who presented to the ER with LUQ pain. She was recently hospitalized with diarrhea and experienced hypotension during that time Acute Colitis - possibly ischemic History of gastric bypass - CT scan shows evidence of acute colitis, possibly ischemic. Given recent admission for diarrhea and hypotension, will obtain GI consult - patient did have lactic acidosis which resolved with fluids - will continue IV fluids - morphine prn for pain, fentanyl prn for severe pain - flexeril qhs LUQ pain- possibly colitis vs kidney stone? - CT showed no evidence of stone, but done without contrast due to dye allergy - will obtain renal ultrasound - GI consult IBS - not on any meds as outpatient Type II diabetes - fingersticks q6 hours. A1C 6.9 on last admission - diabetic diet - refuses insulin since she got hypoglycemic during last admission Hypertension - will hold antihypertensives for now Anemia - had Hb 9.6. FOBT positive on last admission - needs colonoscopy at some point - had normal iron studies and B12 level on last admission, will check folate tomorrow Depression - continue cymbalta Vitamin D deficiency - continue vitamin D supplementation Code status: DNR/DNI
[2019-06-06 21:27] VITALS: BMI 30.8
[2019-06-06] MEDS ORDERED: Dextrose 50% Abboject 50 ML SYRINGE SLOW IVP PRN (22:03)
[2019-06-06] MEDS ORDERED: Dextrose 5% in Water 1,000 ML IV PRN (22:03)
--- NOTE | 2019-06-06 22:14 | ULT ---
Renal sonogram HISTORY: Flank pain. Dysuria. FINDINGS: Right kidney is 11.8 cm and the left is 11.7 cm. There is thinning of the cortex of each ki dney. No hydronephrosis. Urinary bladder has normal appearance. IMPRESSION: Bilateral diffuse renal cortical atrophy. No evidence of urinary tract obstruction.
[2019-06-06] MEDS: Fentanyl 100 MCG/2 ML VIAL SLOW IVP PRN (22:19)
[2019-06-06] MEDS: tiZANidine HCl 4 MG TAB PO SCH (22:25)
[2019-06-06] MEDS: Dextrose 5 % And 0.9 % NaCl 1,000 ML IV SCH (23:55)
[2019-06-07] MEDS ORDERED: metroNIDAZOLE 500 MG in Premix Bag 1 BAG IVPB SCH (01:00)
[2019-06-07 06:50] LABS: #Lymphocytes 1.6 thou/uL (1.20-3.40); #Monocytes 0.4 thou/uL (0.11-0.59); #Neutrophils 1.6 thou/uL (1.40-6.50); %Basophils 0.5 % (0.0-1.0); %Eosinophils 1.1 % (0.0-10.0); %Lymphocytes 43.5 % (21.0-51.0); %Monocytes 10.7 % (0.0-10.0); %Neutrophils 44.2 % (42.0-75.0); Hemoglobin 7.9 g/dL (12.0-16.0); Mean Corpuscular HGB CONC 31.7 g/dL (32.0-36.0); Mean Corpuscular Hemoglobin 26.3 pg (27.0-31.0); Mean Platelet Volume 7.3 fL (7.4-10.4); Platelet Count 269 thou/uL (130-400); RBC Distribution Width 20.2 % (11.5-14.5); White Blood Cell (WBC) Count 3.6 thou/uL (4.8-10.8)
[2019-06-07 07:02] LABS: ALT (SGPT) 11 U/L (8-55); AST (SGOT) 12 U/L (5-34); Albumin 1.7 g/dL (3.5-5.0); Alkaline Phosphatase 129 U/L (40-110); Anion Gap 5 mmol/L (10-20); BUN (Urea Nitrogen) 7 mg/dL (7.0-18.7); Bilirubin, Total 0.2 mg/dL (0.2-1.2); Calc. Creatinine Clearance 119 mL/min (70-130); Calcium 7.2 mg/dL (7.8-10.44); Carbon Dioxide 27 mmol/L (22-29); Chloride 108 mmol/L (98-107); Estimated GFR-MDRD 86; Globulin 2.5 g/dL (2.4-3.5); Glucose 134 mg/dL (70-105); Potassium 4.3 mmol/L (3.5-5.1); Protein, Total 4.2 g/dL (6.0-8.3); Sodium 136 mmol/L (136-145)
[2019-06-07] MEDS: DULoxetine 60 MG CAP PO SCH (08:33)
[2019-06-07] MEDS: Fentanyl 100 MCG/2 ML VIAL SLOW IVP PRN ×2 (08:39→20:12)
[2019-06-07] MEDS: tiZANidine HCl 4 MG TAB PO PRN (09:27)
[2019-06-07] MEDS: metroNIDAZOLE 500 MG in Premix Bag 1 BAG IVPB SCH ×2 (13:41→21:44)
[2019-06-07] MEDS: Dextrose 5 % And 0.9 % NaCl 1,000 ML IV SCH (13:41)
--- NOTE | 2019-06-07 17:47 | PDOC.HOSPP ---
- Subjective Encounter Date: 06/07/19 Encounter Time: 11:00 Subjective: The patient continues to have persistent pain in LUQ. States its sharp. Also has pain in her flank. When they did renal ultrasound she said it was unbearable because she was so tender. No nausea or vomiting . No blood in stools. Flexeril seems to help her pain and lasts for couple hours. She denies trauma or pulling a muscle - Objective Vital Signs & Weight: Vital Signs (12 hours) Temp Pulse Resp BP BP Pulse Ox 06/07/19 15:48 97.4 F L 73 20 91/60 98 06/07/19 11:00 98.3 F 63 20 98/65 96 06/07/19 08:45 113/75 06/07/19 07:09 97.7 F 65 18 91/62 97 Weight Weight 174 lb 2 oz Result Diagrams: 06/07/19 06:32 06/07/19 06:32 Additional Labs: Accuchecks 06/07/19 06/07/19 06/07/19 15:47 11:15 05:55 POC Glucose 213 H 138 H 146 H 06/07/19 00:19 POC Glucose 155 H Hospitalist ROS - Review of Systems Constitutional: denies: fever, chills Respiratory: denies: cough, dry, sputum Cardiovascular: denies: chest pain, orthopnea - Medication Medications: Active Medications Generic Name Dose Route Start Last Admin Trade Name Freq PRN Reason Stop Dose Admin Duloxetine HCl 60 mg 06/07/19 09:00 06/07/19 08:33 Cymbalta PO 60 mg DAILY KAREN Administration Fentanyl 25 mcg 06/06/19 21:51 06/07/19 08:39 Sublimaze SLOW IVP 25 mcg Q4H PRN Administration Severe Pain (7-10) Ciprofloxacin/Dextrose 400 mg/ 200 mls @ 200 mls/hr 06/07/19 09:00 06/07/19 08:29 Device IVPB 200 mls Q12HR KAREN Administration Dextrose/Sodium Chloride 1,000 mls @ 75 mls/hr 06/06/19 21:15 06/07/19 13:41 D5 0.9% Ns IV 1,000 mls .[id number] KAREN Administration Metronidazole 500 mg/ Device 100 mls @ 100 mls/hr 06/07/19 14:00 06/07/19 13: 41 IVPB 100 mls Q8HR KAREN Administration Sodium Chloride 10 ml 06/06/19 21:00 06/07/19 08:33 Flush - Normal Saline IVF Not Given Q12HR KAREN Tizanidine HCl 4 mg 06/06/19 21:00 06/06/19 22:25 Zanaflex PO 4 mg HS KAREN Administration Tizanidine HCl 4 mg 06/07/19 09:04 06/07/19 09:27 Zanaflex PO 4 mg TID PRN Administration Muscle Spasm - Exam General Appearance: NAD, awake alert Eye: PERRL, anicteric sclera ENT: normocephalic atraumatic, no oropharyngeal lesions Neck: supple, symmetric, no JVD Heart: RRR, no murmur, no gallops, no rubs Respiratory: CTAB, no wheezes, no rales, no ronchi Gastrointestinal: soft. negative: no palpable masses, no guarding, no rigidity Gastrointestinal - other findings: LUQ tenderness, left CVA tenderness Extremities: negative: no clubbing, no edema Skin: negative: normal turgor, no lesions Neurological: negative: cranial nerve grossly intact, normal sensation to touch , no focal deficits, no new deficit Hosp A/P - Plan CT abdomen: evidence of acute colitis spanning the distal transverse colon through the mid descending colon. Ischemic process shojuld be excluded clinically Chest X ray: no acute disease Renal ultrasound: bilateral diffuse renal cortical atrophy This is a 48 year old female with past medical history of IBS, depression, fibromyalgia who presented to the ER with LUQ pain. She was recently hospitalized with diarrhea and experienced hypotension during that time Acute Colitis - possibly ischemic LUQ pain - colitis vs muscle spasm/neuropathic pain ? - CT scan shows evidence of acute colitis, possibly ischemic. Stool cultures on last admission were negative. GI consult for further workup. - patient did have lactic acidosis which resolved with fluids - continue IV fluids - no relief with morphine. Increased flexeril to TID - renal ultrasound showed no kidney stone IBS - not on any meds as outpatient Type II diabetes -fingerstick 130-213. A1C 6.9 on last admission - diabetic diet - refuses insulin since she got hypoglycemic during last admission Hypertension - will hold antihypertensives for now Anemia - had Hb 9.6. FOBT positive on last admission - needs colonoscopy at some point - had normal iron studies and B12 level on last admission, folate pending Depression - continue cymbalta - had recent suicide attempt last admission Vitamin D deficiency - continue vitamin D supplementation Disposition: pending GI consult and improvement in pain Code status: DNR/DNI
[2019-06-07] MEDS: tiZANidine HCl 4 MG TAB PO SCH (20:06)
[2019-06-07] MEDS ORDERED: Dextrose 5% in Water 1,000 ML IV PRN (20:37)
[2019-06-07] MEDS ORDERED: Dextrose 50% Abboject 50 ML SYRINGE SLOW IVP PRN (20:37)
[2019-06-07] MEDS ORDERED: HumaLOG 300 UNITS/3 ML VIAL SC PRN (20:37)
--- NOTE | 2019-06-07 21:04 | CON ---
DATE OF CONSULTATION: 06/07/2019 REASON FOR CONSULTATION: Left upper quadrant abdominal pain, abnormal GI imaging. CONSULTING PROVIDER: Dr. Lucille Andrade. HISTORY OF PRESENT ILLNESS: The patient is a 48-year-old female with past medical history of IBS, depression, fibromyalgia, hypertension, diabetes, morbid obesity, status post Nic-en-Y bypass and recent suicide attempt with metoprolol, presenting with complaints of left flank pain. The patient was recently seen in the hospital on May 29, where she was admitted secondary to increased diarrhea as well as an attempted suicide with metoprolol overdose. She had significant hypotension at that time, but responded well to IV fluid resuscitation. After undergoing workup for her diarrhea, which was negative, she was ultimately discharged to home with instructions to follow up in the GI Clinic. However approximately 3 to 4 days after being home, she began to have increased left flank pain characterized as a dull/pressure type pain, was constant with waxing/waning severity, radiated to the left upper quadrant and left lower back and reached a severity of 10/10. The pain was worse only with deep inspiration and better with the use of tizanidine. Associated symptoms included nausea, subjective chills and continued diarrhea. With worsening of the symptoms, it then prompted her to seek healthcare assistance at [facility] for further evaluation and while in the ER, she had a CT scan that showed evidence of possible colitis spanning the distal transverse colon and into the mid descending colon. With these finding, she was then admitted to the hospital for further evaluation. Currently, she states that she is doing better with lessened pained, but has not resolved. She otherwise denies any vomiting, fever, melena, hematochezia, hematemesis, dysphagia or odynophagia. Of note, during last hospitalizations, a colonoscopy was recommended for her chronic diarrhea where the patient was having approximately 1 solid bowel movement every 2 weeks, but over the last month had been having increased diarrhea characterized as 1 liquid bowel movement per day with no difficulty with defecation. Prior workup included negative infectious stool workup including C. diff, Campylobacter, Salmonella and Shigella. She also does have a concurrent diagnosis of IBS, but is not currently taking any medications for this condition. REVIEW OF SYSTEMS: A 10 category review of systems was obtained with all responses negative except for the pertinent positives as listed in the HPI. PAST MEDICAL HISTORY: As per HPI. PAST SURGICAL HISTORY: Nic-en-Y gastric bypass in 2001, cholecystectomy and hernia repair with mesh placement. FAMILY HISTORY: Denies any GI malignancies. SOCIAL HISTORY: Denies any alcohol or illicit drug use, but does use chewing tobacco. OUTPATIENT MEDICATIONS: Reviewed. ALLERGIES: SULFA, IODINATED CONTRAST, METOCLOPRAMIDE, AND PENICILLIN. PHYSICAL EXAMINATION: VITAL SIGNS: Temperature 97.4, pulse 73, blood pressure 91/60, respiratory rate 20, saturating 98% on room air. GENERAL: The patient was lying in bed, in no acute distress. Alert and oriented x4. HEENT: Normocephalic, atraumatic. NECK: Supple. No JVD or scleral icterus noted. CARDIOVASCULAR: Regular rate and rhythm with no discernible murmurs, gallops, or rubs. RESPIRATORY: Clear to auscultation bilaterally with no discernible wheezes or rales, although she did exhibit some splinting with deep inspiration. ABDOMEN: Hyperactive bowel sounds. Soft, nondistended. No tenderness to palpation in the left upper quadrant, midepigastric or right upper quadrant. However, she did exhibit increased pain with palpation in the left flank and left lower back. EXTREMITIES: No cyanosis, clubbing, or edema. LABORATORY DATA: CBC with a white blood cell count of 3.6, hemoglobin 7.9, hematocrit 24.9, platelets 269. Chemistry with a sodium of 136, potassium 4.3, chloride 108, CO2 of 27, BUN 7, creatinine 0.72, glucose 134, AST 12, ALT 11, alkaline phosphatase 129, total bilirubin 0.2, albumin 1.7, lipase 7. Lactic acid on admission 2.6. IMAGING DATA: CT of the abdomen and pelvis was obtained on June 06, 2019, which showed evidence of prior cholecystectomy and gastric surgery with no evidence of pneumoperitoneum or ascites. There was a moderate amount of retained fecal material within the colon. However, within the left abdomen there was an inflamed colon from the level of the distal transverse colon and extending through the splenic flexure to the mid descending colon. Pericolonic fat stranding within the left abdomen was present. There was also a diverticulum with concretion of a small volume of barium although it is not necessarily associate with the fat stranding. ASSESSMENT AND PLAN: The patient is a 48-year-old female with past medical history of irritable bowel syndrome depression, fibromyalgia, hypertension, diabetes, morbid obesity, status post Nic-en-Y and recent suicide attempt with metoprolol with associated hypotension, presenting with complaints of left flank/left mid back pain and abnormal GI imaging consistent with ischemic colitis. Left flank pain/ischemic colitis. The patient is presenting with fairly acute onset of left flank pain that has been present for the last 2 to 3 days prior to admission and recurring shortly after discharge from the hospital. During the last hospitalization she did attempt suicide with the use of metoprolol and experienced profound hypotension that required resuscitative measures with IV fluids. She ultimately responded to more conservative measures, but during the process, most likely had decreased flow to various regions of the body including the watershed areas of the colon including the splenic flexure. At this time, her clinical history is most consistent with ischemic colitis given the location of the pain and the imaging findings. However, an infectious etiology needs to be ruled out at this time given the significant healthcare exposures within the last 2 weeks. RECOMMENDATIONS: 1. We would obtain infectious stool studies for possible infectious pathogen generating her left-sided pain/imaging findings. 2. Continue with IV fluids resuscitation in addition to attempting to maintain normotensive pressures. 3. Pain control per primary team. 4. We will continue current diet. 5. At the current time, there is no plans for colonoscopy given the higher likelihood of ischemic colitis. If the patient is not responding to more conservative measures; however then endoscopic evaluation may be warranted. 6. Diarrhea. The patient is presenting with chronic diarrhea that has been occurring over the last month and characterized as having 1 liquid bowel movement per day. She does have a recent history of significant constipation having approximately 1 solid bowel movement every 2 weeks with fairly sudden change in her bowel habits to the more liquid type bowel movements. Based on the CT scan, there is still a moderate amount of retained fecal material within the colon, raising concern for encopresis and a stool plug resulting in the appearance of more liquid stools despite constipation. RECOMMENDATIONS: 1. We would hold on any antimotility agents for the time being given significant constipation and probable encopresis. 2. We would consider administration of MiraLAX 1 capsule daily as part of a bowel regimen while on pain medications and probable history of encopresis. 3. We will follow up on the infectious stool studies obtained thus far. 4. We will continue to follow. 5. Please call with any questions. Job ID: [id number]
[2019-06-08] MEDS: Dextrose 5 % And 0.9 % NaCl 1,000 ML IV SCH ×4 (01:28→20:28)
[2019-06-08] MEDS: metroNIDAZOLE 500 MG in Premix Bag 1 BAG IVPB SCH ×3 (05:09→22:35)
[2019-06-08] MEDS: tiZANidine HCl 4 MG TAB PO PRN (05:10)
[2019-06-08] MEDS: DULoxetine 60 MG CAP PO SCH (07:47)
[2019-06-08] MEDS: Polyethylene Glycol 3350 17 GM Packet PO SCH (07:48)
[2019-06-08 08:19] LABS: Mean Corpuscular HGB CONC 31.6 g/dL (32.0-36.0); Mean Corpuscular Hemoglobin 26.6 pg (27.0-31.0); Platelet Count 268 thou/uL (130-400); RBC Distribution Width 20.4 % (11.5-14.5); Red Blood Cell (RBC) Count 3.39 mill/uL (4.20-5.40); White Blood Cell (WBC) Count 4.1 thou/uL (4.8-10.8)
[2019-06-08 08:43] LABS: ALT (SGPT) 12 U/L (8-55); AST (SGOT) 10 U/L (5-34); Alkaline Phosphatase 144 U/L (40-110); Anion Gap 6 mmol/L (10-20); BUN (Urea Nitrogen) 6 mg/dL (7.0-18.7); Bilirubin, Total 0.2 mg/dL (0.2-1.2); Calc. Creatinine Clearance 116 mL/min (70-130); Calcium 7.5 mg/dL (7.8-10.44); Carbon Dioxide 27 mmol/L (22-29); Chloride 109 mmol/L (98-107); Estimated GFR-MDRD 84; Globulin 2.7 g/dL (2.4-3.5); Glucose 144 mg/dL (70-105); Iron 26 ug/dL (50-170); Iron Binding Capacity, Total 171 mcg/dL (265-497); Potassium 3.7 mmol/L (3.5-5.1); Protein, Total 4.7 g/dL (6.0-8.3); Sodium 138 mmol/L (136-145)
[2019-06-08] MEDS: Fentanyl 100 MCG/2 ML VIAL SLOW IVP PRN ×3 (12:32→22:38)
[2019-06-08] MEDS ORDERED: Folic Acid 1 MG TAB PO SCH (13:30)
--- NOTE | 2019-06-08 16:19 | PDOC.HOSPP ---
- Subjective Encounter Date: 06/08/19 Encounter Time: 15:00 Subjective: The patient continues to have severe flank pain and LUQ pain. Also has pain in the RUQ. She states flexerli is helping her pain and barely making her comfortable. She was told by GI they would consider colonscopy on Tuesday if no improvement. She also reports four liquidy stools today and says she was seeing tissue fragments in her stool and clots - Objective Vital Signs & Weight: Vital Signs (12 hours) Temp Pulse Resp BP Pulse Ox 06/08/19 15:17 97.8 F 66 18 94/59 L 96 06/08/19 11:20 98.1 F 66 19 97/65 96 06/08/19 08:00 94 L 06/08/19 06:58 97.6 F 58 L 18 100/64 94 L Weight Weight 174 lb 2 oz I&O: 06/07/19 06/08/19 06/09/19 06:59 06:59 06:59 Intake Total 1400 Balance 1400 Result Diagrams: 06/08/19 07:58 06/08/19 07:58 Additional Labs: Accuchecks 06/08/19 06/08/19 06/08/19 15:17 11:26 05:17 POC Glucose 130 H 101 144 H 06/07/19 06/07/19 20:30 15:47 POC Glucose 90 213 H Hospitalist ROS - Review of Systems Constitutional: denies: fever, chills Respiratory: denies: cough, dry Cardiovascular: denies: chest pain, palpitations - Medication Medications: Active Medications Generic Name Dose Route Start Last Admin Trade Name Thao PRN Reason Stop Dose Admin Duloxetine HCl 60 mg 06/07/19 09:00 06/08/19 07:47 Cymbalta PO 60 mg DAILY KAREN Administration Fentanyl 25 mcg 06/06/19 21:51 06/08/19 12:32 Sublimaze SLOW IVP 25 mcg Q4H PRN Administration Severe Pain (7-10) Ciprofloxacin/Dextrose 400 mg/ 200 mls @ 200 mls/hr 06/07/19 09:00 06/08/19 07:45 Device IVPB 200 mls Q12HR KAREN Administration Dextrose/Sodium Chloride 1,000 mls @ 75 mls/hr 06/06/19 21:15 06/08/19 13:24 D5 0.9% Ns IV Not Given .[id number] KAREN Metronidazole 500 mg/ Device 100 mls @ 100 mls/hr 06/07/19 14:00 06/08/19 13: 21 IVPB 100 mls Q8HR KAREN Administration Polyethylene Glycol 17 gm 06/08/19 09:00 06/08/19 07:48 Miralax PO Not Given DAILY KAREN Sodium Chloride 10 ml 06/06/19 21:00 06/08/19 07:48 Flush - Normal Saline IVF Not Given Q12HR KAREN Tizanidine HCl 4 mg 06/06/19 21:00 06/07/19 20:06 Zanaflex PO 4 mg HS KAREN Administration Tizanidine HCl 4 mg 06/07/19 09:04 06/08/19 05:10 Zanaflex PO 4 mg TID PRN Administration Muscle Spasm - Exam General Appearance: NAD, awake alert Eye: PERRL, anicteric sclera ENT: normocephalic atraumatic, no oropharyngeal lesions Neck: supple, symmetric, no JVD, no thyromegaly Heart: RRR, no murmur, no gallops, no rubs Respiratory: CTAB, no wheezes, no rales Gastrointestinal: soft Gastrointestinal - other findings: RUQ tenderness. Unable to examine LUQ due guarding. Left CVA tenderness Extremities: no cyanosis, no clubbing, no edema Skin: normal turgor, no lesions, no rashes Neurological: cranial nerve grossly intact, normal sensation to touch, no focal deficits, no new deficit Musculoskeletal: normal tone, normal strength, no muscle wasting Musculoskeletal - other findings: patient has some spinal tenderness in the L spine Psychiatric: normal affect, normal behavior, A&O x 3, oriented to person Hosp A/P - Plan CT abdomen: evidence of acute colitis spanning the distal transverse colon through the mid descending colon. Ischemic process shojuld be excluded clinically Chest X ray: no acute disease Renal ultrasound: bilateral diffuse renal cortical atrophy This is a 48 year old female with past medical history of IBS, depression, fibromyalgia who presented to the ER with LUQ pain. She was recently hospitalized with diarrhea and experienced hypotension during that time Acute Colitis - possibly ischemic LUQ pain - colitis vs muscle spasm/neuropathic pain ? - patient overdosed on metoprolol last week, likely had severe hypotension resulting in ischemic event - CT scan shows evidence of acute colitis, possibly ischemic. Stool cultures on last admission were negative. Repeat stool cultures, campylobacter, shigatoxin are negative - continue supportive care with IV fluids, cipro and flagyl. Per GI, will plan for colonscopy Tuesday if no improvement - continue flexeril tid, fentanyl prn - renal ultrasound showed no kidney stone Back pain - will check lumbar spine Xray IBS - not on any meds as outpatient Type II diabetes -fingerstick 130-213. A1C 6.9 on last admission - diabetic diet - refuses insulin since she got hypoglycemic during last admission Hypertension - will hold antihypertensives for now Folate deficiency anemia - had Hb 9.6. FOBT positive on last admission. Folate low, starting folic acid 1 mg daily - needs colonoscopy at some point - had normal iron studies and B12 level on last admission Depression - continue cymbalta - had recent suicide attempt last admission Vitamin D deficiency - continue vitamin D supplementation Disposition: pending improvement in pain Code status: DNR/DNI
--- NOTE | 2019-06-08 19:21 | PRG ---
DATE OF SERVICE: 06/08/2019 REASON FOR CONSULTATION: Left upper quadrant abdominal pain, abnormal GI imaging. SUBJECTIVE: Today, the patient states that she continues to have left upper quadrant and left flank abdominal pain that is unchanged in position and severity. She has had approximately 4 liquid bowel movements today with the appearance of possible blood clots and "tissue" with one of the bowel movements. She did not experience any increase of her abdominal pain when she was having these diarrhea like bowel movements. She has been able to tolerate a solid diet without difficulty, although she does continue to have diminished appetite, which she attributes to her gastric bypass surgery. Otherwise, she denies any vomiting, fever, melena, hematemesis, dysphagia, or odynophagia. OBJECTIVE: VITAL SIGNS: Temperature 97.8, pulse 66, blood pressure 94/59, respiratory rate 18, saturating 96% on room air. GENERAL: The patient was lying in bed, in no acute distress. Alert and oriented x4. CARDIOVASCULAR: Regular rate and rhythm. RESPIRATORY: Clear to auscultation bilaterally. ABDOMEN: Normoactive bowel sounds. Soft, nondistended. Tenderness to palpation in the left upper quadrant and left lower quadrant in addition to the left flank. EXTREMITIES: No cyanosis, clubbing, or edema. LABORATORY DATA: CBC with a white blood cell count of 4.1, hemoglobin 9, hematocrit 28.4, platelets 268. Chemistry with a sodium of 138, potassium 3.7, chloride 109, CO2 of 27, BUN 6, creatinine 0.74, glucose 144. Iron 26, TIBC 171, ferritin 28. AST 10, ALT 12, alkaline phosphatase 144, total bilirubin 0.2. Vitamin B12 1013, folate decreased at 4. IMAGING DATA: No current GI imaging is available for review. ASSESSMENT AND PLAN: The patient is a 48-year-old female with past medical history of irritable bowel syndrome, fibromyalgia, hypertension, diabetes, morbid obesity, status post Nic-en-Y gastric bypass, and recent suicide attempt with metoprolol with associated hypotension, presenting with complaints of left flank/left mid-back pain, and abnormal GI imaging consistent with ischemic colitis. Left flank pain/ischemic colitis: The patient presented with acute onset of left flank pain, that was present 2 to 3 days prior to admission. During the hospitalization thus far with increasing her bowel regimen and with IV fluid support, she continues to have left upper quadrant/left flank abdominal pain. She is also having the appearance of small blood clots and what appeared to be "tissue" in her stool, which is most likely indicative of an ischemic colitis as well as the surface of the colon is regenerating itself, the old tissue is being expelled. Infectious stool studies so far have all been negative for Clostridium difficile, Salmonella, Shigella, and Campylobacter. At this time, the most likely etiology for her abdominal pain still seems to be ischemic colitis, but with more conservative measures, she continues to have significant pain and/or symptoms, which could be indicative of complications from ischemic colitis versus musculoskeletal origin given the location of her pain extending into the mid-back. Recommendations are, 1. Would continue with IV fluid resuscitation. 2. Pain control per Primary Team. 3. Continue current diet with bowel regimen of MiraLAX every day for possible encopresis. 4. If the patient is not experiencing decrease in her abdominal pain, then I would recommend a colonoscopy during this admission for further evaluation of the splenic flexure and/or possible complications associated with ischemic colitis. Diarrhea: The patient is also presenting with chronic diarrhea that has been occurring over the last month and characterized as having one liquid bowel movement per day. She had been having constipation prior to the onset of this diarrhea, raising concern for possible encopresis. Over the last 24 hours, she has had approximately 4 semi-solid to liquid bowel movements with the appearance of tissue in her stool, which could be indicative of the bowel regimen she has been placed on here for prevention of encopresis/constipation or diarrhea associated with ischemic colitis. With the moderate amount of retained fecal material seen within the CT scan, encopresis seems to be more likely, but may require intraluminal evaluation to further determine the cause of her chronic diarrhea. Recommendations, 1. Would hold on any antimotility agents for right now given significant constipation in the past and possible encopresis. 2. Continue MiraLAX daily. 3. Continues to monitor the patient's stool output. We will continue to follow. Please call with any questions. Job ID: [id number]
[2019-06-08] MEDS: tiZANidine HCl 4 MG TAB PO SCH (19:34)
[2019-06-09] MEDS: Dextrose 5 % And 0.9 % NaCl 1,000 ML IV SCH ×2 (03:55→14:33)
[2019-06-09] MEDS: tiZANidine HCl 4 MG TAB PO PRN ×2 (05:04→14:33)
[2019-06-09] MEDS: Fentanyl 100 MCG/2 ML VIAL SLOW IVP PRN (05:04)
[2019-06-09] MEDS: metroNIDAZOLE 500 MG in Premix Bag 1 BAG IVPB SCH ×3 (05:06→22:45)
[2019-06-09 06:05] LABS: Hemoglobin 8.2 g/dL (12.0-16.0); Mean Corpuscular HGB CONC 31.4 g/dL (32.0-36.0); Mean Corpuscular Hemoglobin 26.3 pg (27.0-31.0); Mean Corpuscular Volume 83.9 fL (78.0-98.0); Mean Platelet Volume 7.9 fL (7.4-10.4); Platelet Count 262 thou/uL (130-400); RBC Distribution Width 20.9 % (11.5-14.5); Red Blood Cell (RBC) Count 3.13 mill/uL (4.20-5.40); White Blood Cell (WBC) Count 3.8 thou/uL (4.8-10.8)
[2019-06-09 06:25] LABS: ALT (SGPT) 10 U/L (8-55); AST (SGOT) 11 U/L (5-34); Albumin 1.9 g/dL (3.5-5.0); Alkaline Phosphatase 124 U/L (40-110); Anion Gap 7 mmol/L (10-20); BUN (Urea Nitrogen) 5 mg/dL (7.0-18.7); Bilirubin, Total 0.2 mg/dL (0.2-1.2); Calc. Creatinine Clearance 128 mL/min (70-130); Calcium 7.3 mg/dL (7.8-10.44); Carbon Dioxide 26 mmol/L (22-29); Chloride 109 mmol/L (98-107); Estimated GFR-MDRD Greater than 90; Globulin 2.4 g/dL (2.4-3.5); Glucose 126 mg/dL (70-105); Potassium 3.5 mmol/L (3.5-5.1); Protein, Total 4.3 g/dL (6.0-8.3); Sodium 138 mmol/L (136-145)
[2019-06-09] MEDS: Folic Acid 1 MG TAB PO SCH (08:03)
[2019-06-09] MEDS: DULoxetine 60 MG CAP PO SCH (08:03)
[2019-06-09] MEDS: Polyethylene Glycol 3350 17 GM Packet PO SCH (08:03)
--- NOTE | 2019-06-09 12:30 | PDOC.HOSPP ---
- Subjective Encounter Date: 06/09/19 Encounter Time: 12:25 Subjective: Still having diarrhea. Says it is actually a little worse. She has pain in the left upper quadrant and radiates to her back. Needs pain meds q 6h. She wanted to share that she had previously had a large incisional hernia following a . The bulk of her bowel was in the hernia sack. When she had it repaired, there was concern that there may not adequate space in the abdomen, but it worked out ok. She did have mesh. She also wants to revoke her DNAR. She says she was using it as "a form of suicide" and no longer wants to be DNAR. She would like to be full-code now. - Objective Vital Signs & Weight: Vital Signs (12 hours) Temp Pulse Resp BP Pulse Ox 06/09/19 08:00 94 L 06/09/19 07:41 97.7 F 62 18 124/81 92 L Weight Weight 174 lb 2 oz I&O: 06/08/19 06/09/19 06/10/19 06:59 06:59 06:59 Intake Total 1400 1600 Balance 1400 1600 Result Diagrams: 06/09/19 05:44 06/09/19 05:44 Additional Labs: Accuchecks 06/09/19 06/09/19 06/08/19 11:55 05:03 20:33 POC Glucose 102 109 171 H 06/08/19 15:17 POC Glucose 130 H Hospitalist ROS - Medication Medications: Active Medications Generic Name Dose Route Start Last Admin Trade Name Freq PRN Reason Stop Dose Admin Duloxetine HCl 60 mg 06/07/19 09:00 06/09/19 08:03 Cymbalta PO 60 mg DAILY KAREN Administration Fentanyl 25 mcg 06/06/19 21:51 06/09/19 05:04 Sublimaze SLOW IVP 25 mcg Q4H PRN Administration Severe Pain (7-10) Folic Acid 1 mg 06/09/19 09:00 06/09/19 08:03 Folvite PO 1 mg DAILY KAREN Administration Ciprofloxacin/Dextrose 400 mg/ 200 mls @ 200 mls/hr 06/07/19 09:00 06/09/19 08:02 Device IVPB 200 mls Q12HR KAREN Administration Dextrose/Sodium Chloride 1,000 mls @ 75 mls/hr 06/06/19 21:15 11/16/19 03:55 D5 0.9% Ns IV Not Given .[id number] KAREN Metronidazole 500 mg/ Device 100 mls @ 100 mls/hr 06/07/19 14:00 06/09/19 05: 06 IVPB 100 mls Q8HR KAREN Administration Polyethylene Glycol 17 gm 06/08/19 09:00 06/09/19 08:03 Miralax PO Not Given DAILY KAREN Sodium Chloride 10 ml 06/06/19 21:00 06/09/19 08:04 Flush - Normal Saline IVF Not Given Q12HR KAREN Tizanidine HCl 4 mg 06/06/19 21:00 06/08/19 19:34 Zanaflex PO 4 mg HS KAREN Administration Tizanidine HCl 4 mg 06/07/19 09:04 06/09/19 05:04 Zanaflex PO 4 mg TID PRN Administration Muscle Spasm - Exam General Appearance: NAD, awake alert Neck: supple, symmetric, no JVD, no thyromegaly, no lymphadenopathy, no carotid bruit Heart: RRR, no murmur, no gallops, no rubs, normal peripheral pulses Respiratory: CTAB, no wheezes, no rales, no ronchi, normal chest expansion, no tachypnea, normal percussion Gastrointestinal: soft, non-distended, normal bowel sounds, no palpable masses, no hepatomegaly, no splenomegaly, no bruit, no guarding, tender to palpation ( LUQ, mild.) Extremities: no cyanosis, no clubbing, no edema Skin: normal turgor, no lesions, no rashes Neurological: cranial nerve grossly intact, no focal deficits Musculoskeletal: normal tone, normal strength, no muscle wasting Psychiatric: normal affect, normal behavior, A&O x 3 Hosp A/P (1) Abdominal pain Code(s): R10.9 - UNSPECIFIED ABDOMINAL PAIN Status: Acute (2) Colitis Code(s): K52.9 - NONINFECTIVE GASTROENTERITIS AND COLITIS, UNSPECIFIED Status : Acute (3) Depression Code(s): F32.9 - MAJOR DEPRESSIVE DISORDER, SINGLE EPISODE, UNSPECIFIED Status : Acute (4) Diarrhea Code(s): R19.7 - DIARRHEA, UNSPECIFIED Status: Acute (5) IBS (irritable bowel syndrome) Status: Acute (6) HTN (hypertension) Code(s): I10 - ESSENTIAL (PRIMARY) HYPERTENSION Status: Acute (7) DM II (diabetes mellitus, type II), controlled Code(s): E11.9 - TYPE 2 DIABETES MELLITUS WITHOUT COMPLICATIONS Status: Acute (8) Vitamin D deficiency Code(s): E55.9 - VITAMIN D DEFICIENCY, UNSPECIFIED Status: Acute (9) Folate deficiency anemia Code(s): D52.9 - FOLATE DEFICIENCY ANEMIA, UNSPECIFIED Status: Acute - Plan She continues on Cipro/Flagyl for colitis. Endoscopy tomorrow. Continue pain management. Stop Fentanyl and start morphine. May last longer for her. Will change the code status to Full code. Palliative Care to assist with removing/revoking any paperwork from previous visit. Continue vitamin supplementation.
--- NOTE | 2019-06-09 15:16 | PRG ---
DATE OF SERVICE: 06/09/2019 REASON FOR CONSULTATION: Left upper quadrant abdominal pain, abnormal GI imaging. SUBJECTIVE: Today, she states that she continues to have left upper quadrant abdominal pain that is slightly worse when compared to yesterday and is now radiating to the midepigastric region. She also states that she has had approximately 4 "solidly liquid" bowel movements over the last 24 hours with no difficulty with defecation. She has not had any further appearance of blood clots or tissue. She also states that she has been receiving pain medications every 6 hours to control this pain, but per nursing staff, she has not received any pain medications today or overnight. She had been able to tolerate a solid diet without difficulty, although her appetite was somewhat diminished with symptoms of early satiety. Otherwise, she denies any vomiting, fever, melena, hematemesis, dysphagia, or odynophagia. OBJECTIVE: VITAL SIGNS: Temperature 97.7, pulse 62, blood pressure 124/81, respiratory rate 18, saturating 94% on room air. GENERAL: The patient was lying in bed, in no acute distress. Alert and oriented x4. CARDIOVASCULAR: Regular rate and rhythm. RESPIRATORY: Clear to auscultation bilaterally. ABDOMEN: Normoactive bowel sounds. Soft, nondistended. No tenderness to palpation on distraction with my stethoscope. However, significant tenderness to palpation in the left flank, left upper quadrant, and left lower quadrant. EXTREMITIES: No cyanosis, clubbing, or edema. LABORATORY DATA: CBC with a white blood cell count of 3.8, hemoglobin 8.2, hematocrit 26.3, platelets 262. Chemistry with a sodium of 138, potassium 3.5, chloride 109, CO2 of 26, BUN 5, creatinine 0.67, glucose 126, AST 11, ALT 10, alkaline phosphatase 124, total bilirubin 0.2. IMAGING DATA: No current GI imaging is available for review. ASSESSMENT AND PLAN: The patient is a 48-year-old female with past medical history of irritable bowel syndrome, fibromyalgia, hypertension, diabetes, morbid obesity, status post Nic-en-Y gastric bypass, and recent suicide attempt with metoprolol with associated hypotension, presenting with complaints of left flank/left upper quadrant abdominal pain and abnormal GI imaging consistent with ischemic colitis. 1. Left upper quadrant pain/ischemic colitis. The patient initially presented with acute onset of left upper quadrant/left flank/back pain 2 to 3 days prior to admission. On initial evaluation, she had a CT scan that showed increased mucosal wall thickening within the left upper quadrant/splenic flexure concerning for inflammatory/ischemic process. Given her recent episode of profound hypotension related to her suicide attempt using metoprolol, ischemic colitis is more likely, especially with this area being a watershed area. Infectious stool studies so far have been negative for Clostridium difficile, Salmonella, Shigella, and Campylobacter, making an infectious etiology much less likely. However, with more conservative management, she continues to have this left upper quadrant abdominal pain and continued diarrhea (although that may be partially in part due to concurrent administration of MiraLAX). At this time, given her continued abdominal pain and diarrhea, endoscopic evaluation is recommended. Recommendations;. a. Continue the patient with IV fluid resuscitation and attempt to maintain normotensive pressures. b. Pain control per primary team. c. Would place the patient on a clear liquid diet today and n.p.o. at midnight in preparation for colonoscopy tomorrow. We will plan for colonoscopy for intraluminal evaluation. 2. Diarrhea. The patient is also presenting with chronic diarrhea, that had been occurring over the last month and was initially characterized as having 1 liquid bowel movement per day. During the hospitalization, she has had approximately 3 to 4 semi-solid liquid bowel movements per day, but has also been currently getting MiraLAX. With her prior history of constipation before the sudden onset of her diarrhea, the diagnosis of encopresis is more likely, and with the help of MiraLAX, has most likely passed any sort of solid stool plug contributing to her current symptoms. However, with continued abdominal pain in association with this diarrhea and negative infectious stool studies, further workup including endoscopy is recommended. Recommendations;. a. Would continue to hold any antimotility agents for now, given her history of significant constipation. b. We will discontinue the MiraLAX in preparation for colonoscopy. c. We will plan for colonoscopy tomorrow on June 10, 2019, for intraluminal evaluation. d. We will continue to monitor the patient's stool output. We will continue to follow. Please call with any questions. Job ID: [id number]
[2019-06-09] MEDS ORDERED: GoLYTELY 4,000 ml Bottle PO SCH (21:00)
[2019-06-09] MEDS: tiZANidine HCl 4 MG TAB PO SCH (21:16)
[2019-06-09] MEDS: Morphine 2 MG/ML SYRINGE SLOW IVP PRN (21:18)
[2019-06-10] MEDS: metroNIDAZOLE 500 MG in Premix Bag 1 BAG IVPB SCH ×3 (05:02→21:48)
[2019-06-10] MEDS: Morphine 2 MG/ML SYRINGE SLOW IVP PRN ×2 (05:05→19:23)
[2019-06-10] MEDS: Dextrose 5 % And 0.9 % NaCl 1,000 ML IV SCH ×2 (06:32→11:53)
[2019-06-10] MEDS: Folic Acid 1 MG TAB PO SCH (08:24)
[2019-06-10] MEDS: DULoxetine 60 MG CAP PO SCH (08:24)
[2019-06-10] MEDS: Ondansetron PF 4 MG/2 ML Vial IVP PRN ×2 (10:14→19:24)
--- NOTE | 2019-06-10 10:30 | PDOC.HOSPP ---
- Subjective Subjective: Has n/v this morning. Initially clear with bowel prep, but no has some particulate again. Says she cannot continue to drink the GoLytely because of the nausea. Endoscopy in doubt at this point. She told the nurse that she will not bowel prep again. Told her it was "now or never". Reports her pain has actually been present for several months and she had to use a heating pad for several days at a time. Has not eaten much for about 4 weeks. Had a weight loss of 23 pounds. Has gastric bypass. - Objective Vital Signs & Weight: Vital Signs (12 hours) Temp Pulse Resp BP Pulse Ox 06/10/19 07:44 96 06/10/19 07:31 97.6 F 73 16 133/89 96 Weight Weight 174 lb 2 oz I&O: 06/09/19 06/10/19 06/11/19 06:59 06:59 06:59 Intake Total 1600 2400 Balance 1600 2400 Result Diagrams: 06/09/19 05:44 06/09/19 05:44 Additional Labs: Accuchecks 06/10/19 06/09/19 06/09/19 05:01 20:38 15:38 POC Glucose 132 H 127 H 159 H 06/09/19 11:55 POC Glucose 102 Hospitalist ROS - Medication Medications: Active Medications Generic Name Dose Route Start Last Admin Trade Name Thao PRN Reason Stop Dose Admin Duloxetine HCl 60 mg 06/07/19 09:00 06/10/19 08:24 Cymbalta PO 60 mg DAILY KAREN Administration Folic Acid 1 mg 06/09/19 09:00 06/10/19 08:24 Folvite PO 1 mg DAILY KAREN Administration Ciprofloxacin/Dextrose 400 mg/ 200 mls @ 200 mls/hr 06/07/19 09:00 06/10/19 08:23 Device IVPB 200 mls Q12HR KAREN Administration Dextrose/Sodium Chloride 1,000 mls @ 75 mls/hr 06/06/19 21:15 06/10/19 06:32 D5 0.9% Ns IV Not Given .[id number] KAREN Metronidazole 500 mg/ Device 100 mls @ 100 mls/hr 06/07/19 14:00 06/10/19 05: 02 IVPB 100 mls Q8HR KAREN Administration Morphine Sulfate 2 mg 06/09/19 12:36 06/10/19 05:05 Morphine SLOW IVP 2 mg Q4H PRN Administration Moderate to Severe Pain (6-10) Ondansetron HCl 4 mg 06/10/19 09:42 06/10/19 10:14 Zofran IVP 4 mg Q6H PRN Administration Nausea/Vomiting Sodium Chloride 10 ml 06/06/19 21:00 06/10/19 08:25 Flush - Normal Saline IVF 10 ml Q12HR KAREN Administration Tizanidine HCl 4 mg 06/06/19 21:00 06/09/19 21:16 Zanaflex PO 4 mg HS KAREN Administration Tizanidine HCl 4 mg 06/07/19 09:04 06/09/19 14:33 Zanaflex PO 4 mg TID PRN Administration Muscle Spasm - Exam General Appearance: NAD, awake alert General - other findings: Slightly ill appearing. Neck: supple, symmetric, no JVD, no thyromegaly, no lymphadenopathy, no carotid bruit Heart: RRR, no murmur, no gallops, no rubs, normal peripheral pulses Respiratory: CTAB, no wheezes, no rales, no ronchi, normal chest expansion, no tachypnea, normal percussion Gastrointestinal: soft, non-tender, non-distended, normal bowel sounds, no palpable masses, no hepatomegaly, no splenomegaly, no bruit Skin: normal turgor Musculoskeletal: normal tone, normal strength, no muscle wasting Psychiatric: normal affect, normal behavior, A&O x 3 Hosp A/P (1) Abdominal pain Code(s): R10.9 - UNSPECIFIED ABDOMINAL PAIN Status: Acute (2) Colitis Code(s): K52.9 - NONINFECTIVE GASTROENTERITIS AND COLITIS, UNSPECIFIED Status : Acute (3) Depression Code(s): F32.9 - MAJOR DEPRESSIVE DISORDER, SINGLE EPISODE, UNSPECIFIED Status : Acute (4) Diarrhea Code(s): R19.7 - DIARRHEA, UNSPECIFIED Status: Acute (5) IBS (irritable bowel syndrome) Status: Acute (6) HTN (hypertension) Code(s): I10 - ESSENTIAL (PRIMARY) HYPERTENSION Status: Acute (7) DM II (diabetes mellitus, type II), controlled Code(s): E11.9 - TYPE 2 DIABETES MELLITUS WITHOUT COMPLICATIONS Status: Acute (8) Vitamin D deficiency Code(s): E55.9 - VITAMIN D DEFICIENCY, UNSPECIFIED Status: Acute (9) Folate deficiency anemia Code(s): D52.9 - FOLATE DEFICIENCY ANEMIA, UNSPECIFIED Status: Acute (10) History of Nic-en-Y gastric bypass Code(s): Z98.84 - BARIATRIC SURGERY STATUS Status: Acute - Plan She continues on Cipro/Flagyl for colitis. Endoscopy today if possible per GI. Continue pain management with morphine. Will change the code status to Full code. Palliative Care to assist with removing/revoking any paperwork from previous visit. Continue vitamin supplementation. Zofran prn.
[2019-06-10] MEDS: tiZANidine HCl 4 MG TAB PO PRN (11:59)
[2019-06-10] MEDS ORDERED: GoLYTELY 4,000 ml Bottle PO SCH (14:45)
--- NOTE | 2019-06-10 15:10 | PRG ---
DATE OF SERVICE: 06/10/2019 REASON FOR CONSULTATION: Left upper quadrant abdominal pain, abnormal GI imaging. SUBJECTIVE: The patient was scheduled for colonoscopy today for intraluminal evaluation of the colon in regard to her left upper quadrant abdominal pain and thickening of the colon seen on imaging. However, the patient was only able to tolerate approximately one half to three quarters of the GoLYTELY prep with stools remaining unclear at the end of that administration. At this time, she complains of increased abdominal distention, but notes that her abdominal pain has improved somewhat with the administration of the GoLYTELY thus far. Otherwise, she denies any fevers, GI bleeding, dysphagia, or odynophagia. Of note, she did have some mild nausea and vomiting with the administration of the prep. OBJECTIVE: VITAL SIGNS: Temperature 98.7, pulse 75, blood pressure 122/80, respiratory rate 18, saturating 94% on room air. GENERAL: The patient is lying in bed, in no acute distress. Alert and oriented x4. CARDIOVASCULAR: Regular rate and rhythm. RESPIRATORY: Clear to auscultation bilaterally. ABDOMEN: Normoactive bowel sounds. Soft, nondistended. No tenderness to palpation on distraction with my stethoscope. However, she did continue to have some tenderness to palpation in the left upper quadrant only. EXTREMITIES: No cyanosis, clubbing, or edema. LABORATORY DATA: No current studies are available for review. IMAGING DATA: No current GI imaging is available for review. ASSESSMENT AND PLAN: The patient is a 48-year-old female with past medical history of irritable bowel syndrome, fibromyalgia, hypertension, diabetes, morbid obesity, status post Nic-en-Y gastric bypass, and recent suicide attempt with metoprolol with associated hypotension, presenting with complaints of left flank/left upper quadrant abdominal pain, and abnormal GI imaging consistent with ischemic colitis. Left upper quadrant abdominal pain/ischemic colitis. The patient initially presented with acute onset of left upper quadrant/left flank and left back abdominal pain 2 to 3 days prior to admission and shortly after discharge from the hospital for treatment regarding her recent suicide attempt. CT scan performed on re-admission showed mucosal wall thickening within the left upper quadrant/splenic flexure, concerning for an inflammatory/ischemic type process. During the course of this hospitalization, infectious stool studies have been negative thus far for C. diff, Salmonella, Shigella and Campylobacter, and more conservative management with maintaining normotensive pressure in light of probable ischemic colitis have not significantly reduced her pain. She ultimately was prepped for colonoscopy on June 10, 2019, but could not tolerate the prep due to a significant amount of retained colonic stool and inability to adequately drink the prep. However, with administration of the GoLYTELY, her pain seems to have improved when compared to previous. Diarrhea. The patient also presented to the hospital with chronic diarrhea that had been occurring over the last month and initially characterized as having one liquid bowel movement per day. During the course of this hospitalization, she had been placed on MiraLAX in light of probable encopresis and more recently with the GoLYTELY preps, still seems to have a large amount of retained stool within the colon making preparation for colonoscopy difficult. At this point, with a significant amount of GoLYTELY already ingested and still having unclear stools, constipation and encopresis seems to be more likely or she has significant swelling associated with the inflammatory process in the splenic flexure. With the continued abdominal pain and the diarrhea during the course of this hospitalization with negative infectious stool studies, intraluminal evaluation is still recommended. RECOMMENDATIONS: 1. Would continue the patient with IV fluid resuscitation and clear liquid diet to maintain normotensive pressures. 2. Pain control per Primary Team, but we would attempt to avoid narcotics if possible. 3. Would place the patient back on a clear liquid diet today and re-prep tonight with GoLYTELY for possible colonoscopy tomorrow. 4. Would continue to hold any antimotility agents for now given her history of significant constipation. 5. Would continue with GoLYTELY prep today and tonight for colonoscopy tomorrow. 6. We will continue to follow. Please call with any questions. Job ID: [id number]
[2019-06-10] MEDS: tiZANidine HCl 4 MG TAB PO SCH (19:24)
[2019-06-11] MEDS: Ondansetron PF 4 MG/2 ML Vial IVP PRN (00:47)
[2019-06-11] MEDS: Morphine 2 MG/ML SYRINGE SLOW IVP PRN ×2 (00:47→21:29)
[2019-06-11] MEDS: metroNIDAZOLE 500 MG in Premix Bag 1 BAG IVPB SCH (05:35)
[2019-06-11] MEDS: Dextrose 5 % And 0.9 % NaCl 1,000 ML IV SCH ×3 (07:05→21:24)
[2019-06-11 07:44] LABS: #Lymphocytes 0.9 thou/uL (1.20-3.40); #Monocytes 0.3 thou/uL (0.11-0.59); #Neutrophils 5.2 thou/uL (1.40-6.50); %Basophils 0.5 % (0.0-1.0); %Eosinophils 0.6 % (0.0-10.0); %Lymphocytes 13.9 % (21.0-51.0); %Monocytes 4.1 % (0.0-10.0); %Neutrophils 80.9 % (42.0-75.0); Hemoglobin 10.5 g/dL (12.0-16.0); Mean Corpuscular HGB CONC 31.7 g/dL (32.0-36.0); Mean Corpuscular Hemoglobin 26.5 pg (27.0-31.0); Mean Corpuscular Volume 83.7 fL (78.0-98.0); Mean Platelet Volume 7.8 fL (7.4-10.4); Platelet Count 321 thou/uL (130-400); RBC Distribution Width 21.5 % (11.5-14.5); Red Blood Cell (RBC) Count 3.94 mill/uL (4.20-5.40); White Blood Cell (WBC) Count 6.5 thou/uL (4.8-10.8)
[2019-06-11] MEDS: Folic Acid 1 MG TAB PO SCH (07:54)
[2019-06-11] MEDS: DULoxetine 60 MG CAP PO SCH (07:55)
[2019-06-11] MEDS: Ondansetron ODT 4 MG TAB PO PRN ×2 (07:55→20:15)
[2019-06-11 08:01] LABS: ALT (SGPT) 15 U/L (8-55); AST (SGOT) 19 U/L (5-34); Albumin 2.1 g/dL (3.5-5.0); Alkaline Phosphatase 158 U/L (40-110); Anion Gap 8 mmol/L (10-20); BUN (Urea Nitrogen) 5 mg/dL (7.0-18.7); Bilirubin, Total 0.3 mg/dL (0.2-1.2); Calc. Creatinine Clearance 118 mL/min (70-130); Calcium 7.6 mg/dL (7.8-10.44); Carbon Dioxide 25 mmol/L (22-29); Chloride 108 mmol/L (98-107); Estimated GFR-MDRD 85; Globulin 2.8 g/dL (2.4-3.5); Glucose 129 mg/dL (70-105); Potassium 3.1 mmol/L (3.5-5.1); Protein, Total 4.9 g/dL (6.0-8.3); Sodium 138 mmol/L (136-145)
[2019-06-11] MEDS ORDERED: PROPOFOL 200 MG/20 ML VIAL ONE (09:55)
[2019-06-11] MEDS ORDERED: Lidocaine 1% PF 5 ML VIAL ONE (09:56)
[2019-06-11] MEDS ORDERED: metroNIDAZOLE 500 MG/100 ML BAG ONE (10:35)
--- NOTE | 2019-06-11 11:58 | OP ---
DATE OF PROCEDURE: 06/11/2019 PROCEDURE PERFORMED: Colonoscopy with biopsy. INDICATION FOR PROCEDURE: Left upper quadrant abdominal pain, abnormal GI imaging showing thickening of the splenic flexure and within the left colon. DESCRIPTION OF PROCEDURE: After the risks and benefits of the procedure were explained to the patient including risks of bleeding, infection, perforation, reactions to anesthesia, aspiration, and/or pain, informed consent was obtained. The patient was then taken to the endoscopy suite, where she was placed in the left lateral decubitus position, followed by administration of propofol via Anesthesia support. Once adequate sedation was achieved, a digital rectal examination was performed followed by introduction of the standard colonoscope, which was then advanced to the distal transverse colon, at which point, significant mucosal erythema, ulceration, and friability of the colon was encountered, in addition to increased patient discomfort while attempting to traverse this region. Given the increased risk of perforation with the findings seen during this examination, attempts to proceed past this point were not attempted. The quality of the prep was poor with significant lack of visualization of the colonic mucosa; however, aggressive irrigation and suctioning were employed with adequate views obtained of the left colon, but inadequate for the evaluation of mucosal lesions less than a centimeter in size. The patient tolerated the procedure well with no immediate perioperative complications. Upon conclusion of the procedure, all equipment was removed from the patient and she was transferred to PACU in satisfactory condition. FINDINGS: Digital rectal exam: Small external hemorrhoids were seen on external examination along with significant amount of brown colored stool. Colon findings: A significant amount of retained solid and liquid stool were seen throughout the entire visualized colon extending into the distal transverse colon, significantly limiting visualization of the colonic mucosa. The scope was advanced to approximately 60 cm past the anal verge, at which point, further progress could not be achieved due to increased patient agitation/discomfort, increased risk of perforation from findings listed below, and inadequate visualization of the colon. Extending from 35 cm to 55 cm with an area of patchy mucosal erythema that assume a cobblestone type appearance in addition to increased swelling of the colonic mucosa, two linear ulcerations extending lengthwise along the colonic mucosa were also seen measuring approximately 3 to 4 cm in length. The patches of abnormal mucosa were also interspersed with patches of normal-appearing mucosa. Multiple biopsies were taken from this region with minimal amounts of bleeding obtained from the erythematous areas of the colon, more indicative of an ischemic type picture. At approximately 30 to 35 cm past the anal verge, there was an abrupt transition from normal-appearing mucosa to affected mucosa with normal-appearing mucosa seen in the distal sigmoid and rectum. Small internal hemorrhoids were seen on rectal retroflexion. IMPRESSION: 1. Patchy erythematous mucosa in a cobblestone type appearance was seen from 35 to 55 cm past the anal verge consistent with ischemic colitis, status post biopsies. 2. Inadequate visualization of the entire colon due to poor colonic preparation. 3. Normal-appearing mucosa seen in the distal sigmoid and rectum. 4. Small internal hemorrhoids and small external hemorrhoids. RECOMMENDATIONS: 1. We will follow up on the biopsy results with further management indicated by pathology report. 2. Given the high likelihood of ischemic colitis, we would maintain normotensive pressures and avoid hypotension during this hospitalization. 3. Given the state of healing seen on examination today, anticoagulation is not necessarily indicated at this time. 4. Pain control per primary team, but would attempt to avoid NSAIDs as it can cause exacerbation of the above findings. Given the findings characteristics of ischemic colitis, we will sign off at this time. Please call with any further questions. Job ID: [id number]
[2019-06-11] MEDS: tiZANidine HCl 4 MG TAB PO PRN (12:02)
--- NOTE | 2019-06-11 14:18 | PDOC.HOSPP ---
- Subjective Encounter Date: 06/11/19 Encounter Time: 14:15 Subjective: Doing ok. Says pain was as high as a 7 today. No vomiting. Feels better that she knows what is going on. - Objective Vital Signs & Weight: Vital Signs (12 hours) Temp Pulse Resp BP BP Pulse Ox 06/11/19 11:45 98.4 F 88 14 123/85 98 06/11/19 09:12 98.5 F 87 14 113/84 94 L 06/11/19 08:00 98.9 F 97 18 116/77 93 L 06/11/19 03:26 97.8 F 81 20 109/75 95 Weight Weight 174 lb 2 oz I&O: 06/10/19 06/11/19 06/12/19 06:59 06:59 06:59 Intake Total 2400 3000 Balance 2400 3000 Result Diagrams: 06/11/19 07:34 06/11/19 07:34 Additional Labs: Accuchecks 06/11/19 06/11/19 12:01 02:36 POC Glucose 101 114 H Hospitalist ROS - Medication Medications: Active Medications Generic Name Dose Route Start Last Admin Trade Name Freq PRN Reason Stop Dose Admin Duloxetine HCl 60 mg 06/07/19 09:00 06/11/19 07:55 Cymbalta PO 60 mg DAILY KAREN Administration Folic Acid 1 mg 06/09/19 09:00 06/11/19 07:54 Folvite PO 1 mg DAILY KAREN Administration Dextrose/Sodium Chloride 1,000 mls @ 75 mls/hr 06/06/19 21:15 06/11/19 12:00 D5 0.9% Ns IV 1,000 mls .[id number] KAREN Administration Morphine Sulfate 2 mg 06/09/19 12:36 06/10/19 19:23 Morphine SLOW IVP 2 mg Q4H PRN Administration Moderate to Severe Pain (6-10) Ondansetron HCl 4 mg 06/10/19 09:42 06/10/19 19:24 Zofran IVP 4 mg Q6H PRN Administration Nausea/Vomiting Ondansetron HCl 4 mg 06/11/19 05:37 06/11/19 07:55 Zofran Odt PO 4 mg Q6H PRN Administration Nausea/Vomiting Sodium Chloride 10 ml 06/06/19 21:00 06/11/19 08:49 Flush - Normal Saline IVF Not Given Q12HR KAREN Tizanidine HCl 4 mg 06/06/19 21:00 06/10/19 19:24 Zanaflex PO 4 mg HS KAREN Administration Tizanidine HCl 4 mg 06/07/19 09:04 06/11/19 12:02 Zanaflex PO 4 mg TID PRN Administration Muscle Spasm - Exam General Appearance: NAD, awake alert Heart: RRR, no murmur, no gallops, no rubs, normal peripheral pulses Respiratory: CTAB, no wheezes, no rales, no ronchi, normal chest expansion, no tachypnea, normal percussion Gastrointestinal: soft, non-distended, normal bowel sounds, no palpable masses, no hepatomegaly, no splenomegaly, no bruit, tender to palpation (Mild, RUQ TTP.) Skin: normal turgor Neurological: no focal deficits Musculoskeletal: normal tone Psychiatric: normal affect, normal behavior, A&O x 3 Hosp A/P (1) Abdominal pain Code(s): R10.9 - UNSPECIFIED ABDOMINAL PAIN Status: Acute (2) Colitis Code(s): K52.9 - NONINFECTIVE GASTROENTERITIS AND COLITIS, UNSPECIFIED Status : Acute (3) Depression Code(s): F32.9 - MAJOR DEPRESSIVE DISORDER, SINGLE EPISODE, UNSPECIFIED Status : Acute (4) Diarrhea Code(s): R19.7 - DIARRHEA, UNSPECIFIED Status: Acute (5) IBS (irritable bowel syndrome) Status: Acute (6) HTN (hypertension) Code(s): I10 - ESSENTIAL (PRIMARY) HYPERTENSION Status: Acute (7) DM II (diabetes mellitus, type II), controlled Code(s): E11.9 - TYPE 2 DIABETES MELLITUS WITHOUT COMPLICATIONS Status: Acute (8) Vitamin D deficiency Code(s): E55.9 - VITAMIN D DEFICIENCY, UNSPECIFIED Status: Acute (9) Folate deficiency anemia Code(s): D52.9 - FOLATE DEFICIENCY ANEMIA, UNSPECIFIED Status: Acute (10) History of Nic-en-Y gastric bypass Code(s): Z98.84 - BARIATRIC SURGERY STATUS Status: Acute - Plan Scope looked like ischemic colitis. Abx DC'd. continue IVF and advance diet as she desires. Add oral pain meds. She feels the tizanidine works best for her. Palliative Care to assist with removing/revoking any paperwork from previous visit. Continue vitamin supplementation. Nayana bansaln.
--- NOTE | 2019-06-11 15:59 | PDOC.PALCO ---
Palliative Care Consult - Consult Details Requesting Physician: Dr Lea Reason for Consult: advance directives assistance, complex decision-making Family Members Present: None - Pertinent HPI 48 year old female who presented to the hospital secondary to left flank pain that was reported to be a10/10 and radiating. States pain is like a "Kidney stone" and associated with nausea and "dry heaves". Recent hospitalization, patient at that time made herself a DNAR. Patient reports non compliant recently with medications. Patient relayed to Dr Farias that she no longer wishes to be a DNAR. - Pertinent PMH HTN, IBS, Anxiety, Depression, Diabetes II - Social History Smoking Status: Never smoker Smoking: chew Alcohol Use: none Drug Use History: none (lives with her , currently homeless and live in a motel.) - Medications MAR Reviewed: Yes - Allergies Allergies/Adverse Reactions: Allergies Allergy/AdvReac Type Severity Reaction Status Date / Time Sulfa (Sulfonamide Allergy Severe Verified 06/06/19 20:22 Antibiotics) acetaminophen [From Tylenol] Allergy Intermediate Hives Verified 06/06/19 20:22 Iodinated Contrast Media Allergy Verified 06/06/19 20:23 metoclopramide [From Reglan] Allergy Verified 05/26/19 05:45 Penicillins Allergy Verified 05/26/19 05:45 - Subjective Awake, alert, flat affect. Pain a 4/10 at time of assessment. Mild abdominal tenderness without guarding, negative for CVA tenderness. Denies suicidal ideation. - Objective Vital Signs: Vital Signs - Most Recent Temp Pulse Resp BP Pulse Ox 98.4 F 88 14 123/85 98 06/11/19 11:45 06/11/19 11:45 06/11/19 11:45 06/11/19 11:45 06/11/19 11:45 Palliative Performance Scale: 50 - Physical Exam Constitutional: NAD Deviation from normal: Fair hygiene HEENT: moist MMs, sclera anicteric, EOMI Deviation from normal: Poor dentition Respiratory: no wheezing, clear to auscultation bilateral, unlabored breathing Cardiovascular: RRR, no significant murmur Gastrointestinal: soft, positive bowel sounds Deviation from normal: tenderness Musculoskeletal: pulses present Neurological: moves all 4 limbs Psychiatric: A&O x 3 Deviation from normal: Mildly flat affect Skin: no rash, normal turgor - Problem List (1) Palliative care encounter Code(s): Z51.5 - ENCOUNTER FOR PALLIATIVE CARE Current Visit: Yes Status: Acute (2) Abdominal pain Code(s): R10.9 - UNSPECIFIED ABDOMINAL PAIN Current Visit: Yes Status: Acute (3) IBS (irritable bowel syndrome) Current Visit: Yes Status: Acute (4) Depression Code(s): F32.9 - MAJOR DEPRESSIVE DISORDER, SINGLE EPISODE, UNSPECIFIED Current Visit: No Status: Acute - Plan/Recommendations Plan: Patient confirmed she does not want to be a DNAR, and that she wants all resuscitative measures. *Did not make appt with [facility] and has not taken the Welbutrin that was prescribed in conjunction with the Cymbalta, requested assistance to make follow up appt *Previously lived in [place] and has not established care here in [place], asked for assistance with making initial appt with PCP to establish care *States her depression has improved, but she remains homeless/she and her have not been able to secure an apartment and live in a motel, her 7 year old daughter lives with her husbands mother in [place]. Patient daughter is enrolled in the "[employer]" Palliative Care to follow up and ensure MPOA complete. Ensure CM order written for assistance with follow up appts to facilitate seamless care for patient from discharge from hospital to follow up appointments. [60] minutes spent on this encounter with >50% of the time in counseling and coordination of care. Thank you for this very appropriate consult.
[2019-06-11] MEDS: traMADol HCl 50 MG TAB PO PRN (20:15)
[2019-06-11] MEDS: tiZANidine HCl 4 MG TAB PO SCH (20:15)
[2019-06-12] MEDS: tiZANidine HCl 4 MG TAB PO PRN ×2 (05:21→16:13)
[2019-06-12] MEDS: Ondansetron ODT 4 MG TAB PO PRN ×2 (05:21→20:36)
[2019-06-12 07:29] LABS: Anion Gap 8 mmol/L (10-20); BUN (Urea Nitrogen) 5 mg/dL (7.0-18.7); Calc. Creatinine Clearance 114 mL/min (70-130); Calcium 7.1 mg/dL (7.8-10.44); Carbon Dioxide 24 mmol/L (22-29); Chloride 108 mmol/L (98-107); Estimated GFR-MDRD 82; Glucose 151 mg/dL (70-105); Sodium 137 mmol/L (136-145)
[2019-06-12] MEDS: DULoxetine 60 MG CAP PO SCH (07:41)
[2019-06-12] MEDS: Dextrose 5 % And 0.9 % NaCl 1,000 ML IV SCH ×3 (07:41→20:39)
[2019-06-12] MEDS: Folic Acid 1 MG TAB PO SCH (07:41)
[2019-06-12 07:51] LABS: Potassium 2.7 mmol/L (3.5-5.1)
[2019-06-12] MEDS ORDERED: Potassium Chloride 20 MEQ TAB PO SCH (08:45)
[2019-06-12] MEDS: Ondansetron PF 4 MG/2 ML Vial IVP PRN (13:44)
[2019-06-12] MEDS: Morphine 2 MG/ML SYRINGE SLOW IVP PRN (15:19)
--- NOTE | 2019-06-12 16:59 | PDOC.HOSPP ---
- Subjective Subjective: Still has some discomfort. She is not eating because she wanted to give her gut a break. She does admit that she still feels a little depressed and that is part of the problem. - Objective Vital Signs & Weight: Vital Signs (12 hours) Temp Pulse Resp BP BP Pulse Ox 06/12/19 16:20 98.6 F 88 16 142/92 H 98 06/12/19 11:06 98.5 F 69 16 122/80 97 06/12/19 07:40 98.4 F 79 14 104/69 94 L Weight Weight 174 lb 2 oz I&O: 06/11/19 06/12/19 06/13/19 06:59 06:59 06:59 Intake Total 3000 2550 Balance 3000 2550 Result Diagrams: 06/11/19 07:34 06/12/19 07:00 Additional Labs: Accuchecks 06/12/19 06/12/19 11:18 04:18 POC Glucose 128 H 131 H Hospitalist ROS - Medication Medications: Active Medications Generic Name Dose Route Start Last Admin Trade Name Thao PRN Reason Stop Dose Admin Duloxetine HCl 60 mg 06/07/19 09:00 06/12/19 07:41 Cymbalta PO 60 mg DAILY KAREN Administration Folic Acid 1 mg 06/09/19 09:00 06/12/19 07:41 Folvite PO 1 mg DAILY KAREN Administration Dextrose/Sodium Chloride 1,000 mls @ 75 mls/hr 06/06/19 21:15 06/12/19 09:53 D5 0.9% Ns IV Not Given .[id number] KAREN Morphine Sulfate 2 mg 06/09/19 12:36 06/12/19 15:19 Morphine SLOW IVP 2 mg Q4H PRN Administration Moderate to Severe Pain (6-10) Ondansetron HCl 4 mg 06/10/19 09:42 06/12/19 13:44 Zofran IVP 4 mg Q6H PRN Administration Nausea/Vomiting Ondansetron HCl 4 mg 06/11/19 05:37 06/12/19 05:21 Zofran Odt PO 4 mg Q6H PRN Administration Nausea/Vomiting Sodium Chloride 10 ml 06/06/19 21:00 06/12/19 07:41 Flush - Normal Saline IVF Not Given Q12HR KAREN Tizanidine HCl 4 mg 06/06/19 21:00 06/11/19 20:15 Zanaflex PO 4 mg HS KAREN Administration Tizanidine HCl 4 mg 06/07/19 09:04 06/12/19 16:13 Zanaflex PO 4 mg TID PRN Administration Muscle Spasm Tramadol HCl 50 mg 06/11/19 14:14 06/11/19 20:15 Ultram PO 50 mg Q6H PRN Administration Pain - Exam General Appearance: NAD, awake alert Neck: supple, symmetric, no JVD, no thyromegaly, no lymphadenopathy, no carotid bruit Heart: RRR, no murmur, no gallops, no rubs, normal peripheral pulses Respiratory: CTAB, no wheezes, no rales, no ronchi, normal chest expansion, no tachypnea, normal percussion Gastrointestinal: soft, non-distended, normal bowel sounds, no palpable masses, tender to palpation (LUQ.) Extremities: no cyanosis, no clubbing, no edema Neurological: no focal deficits Musculoskeletal: normal tone Psychiatric: normal affect, normal behavior, A&O x 3 Hosp A/P (1) Abdominal pain Code(s): R10.9 - UNSPECIFIED ABDOMINAL PAIN Status: Acute (2) Colitis Code(s): K52.9 - NONINFECTIVE GASTROENTERITIS AND COLITIS, UNSPECIFIED Status : Acute (3) Depression Code(s): F32.9 - MAJOR DEPRESSIVE DISORDER, SINGLE EPISODE, UNSPECIFIED Status : Acute (4) Diarrhea Code(s): R19.7 - DIARRHEA, UNSPECIFIED Status: Acute (5) IBS (irritable bowel syndrome) Status: Acute (6) HTN (hypertension) Code(s): I10 - ESSENTIAL (PRIMARY) HYPERTENSION Status: Acute (7) DM II (diabetes mellitus, type II), controlled Code(s): E11.9 - TYPE 2 DIABETES MELLITUS WITHOUT COMPLICATIONS Status: Acute (8) Vitamin D deficiency Code(s): E55.9 - VITAMIN D DEFICIENCY, UNSPECIFIED Status: Acute (9) Folate deficiency anemia Code(s): D52.9 - FOLATE DEFICIENCY ANEMIA, UNSPECIFIED Status: Acute (10) History of Nic-en-Y gastric bypass Code(s): Z98.84 - BARIATRIC SURGERY STATUS Status: Acute - Plan Scope looked like ischemic colitis. Abx DC'd. Continue IVF and advance diet as she desires. Add oral pain meds. Add Levsin for cramps. She feels the tizanidine works best for her. Palliative Care to assisted with removing/revoking any paperwork from previous visit. Continue vitamin supplementation. Zofran prn. Strongly encouraged her to eat. Her nutritional status is very poor. Albumin is very low. She needs to eat in order to be able to heal. Consult art critic. Supplements.
[2019-06-12] MEDS: traMADol HCl 50 MG TAB PO PRN (20:36)
[2019-06-12] MEDS: tiZANidine HCl 4 MG TAB PO SCH (20:36)
[2019-06-13] MEDS: Morphine 2 MG/ML SYRINGE SLOW IVP PRN (05:07)
[2019-06-13 07:34] VITALS: BP 134/84
[2019-06-13 08:32] LABS: #Basophils 0.1 thou/uL (0.0-0.2); #Eosinphils 0.1 thou/uL (0.0-0.7); #Lymphocytes 2.1 thou/uL (1.20-3.40); #Monocytes 0.4 thou/uL (0.11-0.59); #Neutrophils 2.3 thou/uL (1.40-6.50); %Eosinophils 1.5 % (0.0-10.0); %Lymphocytes 42.3 % (21.0-51.0); %Monocytes 7.3 % (0.0-10.0); %Neutrophils 47.9 % (42.0-75.0); Hemoglobin 9.1 g/dL (12.0-16.0); Mean Corpuscular HGB CONC 31.2 g/dL (32.0-36.0); Mean Corpuscular Hemoglobin 26.4 pg (27.0-31.0); Mean Corpuscular Volume 84.7 fL (78.0-98.0); Mean Platelet Volume 7.8 fL (7.4-10.4); Platelet Count 243 thou/uL (130-400); RBC Distribution Width 21.5 % (11.5-14.5); Red Blood Cell (RBC) Count 3.45 mill/uL (4.20-5.40); White Blood Cell (WBC) Count 4.9 thou/uL (4.8-10.8)
[2019-06-13 08:50] LABS: Anion Gap 7 mmol/L (10-20); BUN (Urea Nitrogen) 4 mg/dL (7.0-18.7); Calc. Creatinine Clearance 119 mL/min (70-130); Calcium 7.3 mg/dL (7.8-10.44); Carbon Dioxide 25 mmol/L (22-29); Chloride 110 mmol/L (98-107); Estimated GFR-MDRD 86; Glucose 114 mg/dL (70-105); Sodium 139 mmol/L (136-145)
[2019-06-13] MEDS: Ondansetron ODT 4 MG TAB PO PRN ×2 (08:57→15:11)
[2019-06-13] MEDS: DULoxetine 60 MG CAP PO SCH (08:58)
[2019-06-13] MEDS: Folic Acid 1 MG TAB PO SCH (08:58)
[2019-06-13 08:59] LABS: Potassium 2.8 mmol/L (3.5-5.1)
[2019-06-13] MEDS ORDERED: Ergocalciferol 1.25 MG(50,000 UNITS) CAP PO SCH (09:00)
[2019-06-13] MEDS ORDERED: Potassium Chloride 20 MEQ TAB PO SCH ×2 (09:15→14:15)
[2019-06-13 16:38] VITALS: TEMP 96.5
== END 2019-06-13 18:42 | disposition home or self-care (01) | DRG 394 ==
LOC: ERS 13:41 → T4-A 19:00 → OBSVTOIN 19:00
PROVIDERS: ADMIT Internal Medicine; ATTEND Internal Medicine
PROC: 0DBL8ZX Excision of Transverse Colon, Via Natural or Artificial Opening Endoscopic, Diagnostic (ICD-10-PCS; principal; 2019-06-11)
DX: K55.039 Acute (reversible) ischemia of large intestine, extent unspecified (principal); E87.2 Acidosis; F32.9 Major depressive disorder, single episode, unspecified; Z51.5 Encounter for palliative care; M79.7 Fibromyalgia; I10 Essential (primary) hypertension; E11.9 Type 2 diabetes mellitus without complications; Z98.84 Bariatric surgery status; Z90.49 Acquired absence of other specified parts of digestive tract; Z91.041 Radiographic dye allergy status; K58.9 Irritable bowel syndrome, unspecified; D64.9 Anemia, unspecified; E55.9 Vitamin D deficiency, unspecified; Z66 Do not resuscitate; Z88.2 Allergy status to sulfonamides; Z88.0 Allergy status to penicillin; Z79.899 Other long term (current) drug therapy; I95.9 Hypotension, unspecified; E66.01 Morbid (severe) obesity due to excess calories; D52.9 Folate deficiency anemia, unspecified; Z68.30 Body mass index [BMI] 30.0-30.9, adult; K64.4 Residual hemorrhoidal skin tags; F41.9 Anxiety disorder, unspecified; R15.9 Full incontinence of feces
CPT/HCPCS: 36415; 36416; 71045; 74176; 76770; 80048; 80053; 80306; 81003; 82607; 82728; 82746; 83540; 83550; 83605; 83690; 84484; 84703; 85025; 85027; 87045; 87046; 87086; 87324; 87427; 87449; 88305; 93005; 96365; 96367; 96375; J0744; J1956; J2001; J2270; J2405; J2704; J3010; J7042; Q0162; Q9967

== ENCOUNTER 2019-06-15 15:01 | Emergency (ER) | payer SELFPAY ==
[2019-06-15 15:39] LABS: #Eosinphils 0.1 thou/uL (0.0-0.7); #Lymphocytes 2.1 thou/uL (1.20-3.40); #Monocytes 0.4 thou/uL (0.11-0.59); #Neutrophils 3.2 thou/uL (1.40-6.50); %Basophils 0.7 % (0.0-1.0); %Eosinophils 1.6 % (0.0-10.0); %Lymphocytes 36.2 % (21.0-51.0); %Monocytes 6.3 % (0.0-10.0); %Neutrophils 55.2 % (42.0-75.0); Hemoglobin 9.6 g/dL (12.0-16.0); Mean Corpuscular HGB CONC 30.6 g/dL (32.0-36.0); Mean Corpuscular Hemoglobin 25.8 pg (27.0-31.0); Mean Corpuscular Volume 84.3 fL (78.0-98.0); Mean Platelet Volume 8.3 fL (7.4-10.4); Platelet Count 267 thou/uL (130-400); RBC Distribution Width 21.2 % (11.5-14.5); White Blood Cell (WBC) Count 5.9 thou/uL (4.8-10.8)
[2019-06-15 15:58] LABS: Anion Gap 8 mmol/L (10-20); BUN (Urea Nitrogen) 5 mg/dL (7.0-18.7); Calc. Creatinine Clearance 0 mL/min (70-130); Carbon Dioxide 30 mmol/L (22-29); Chloride 105 mmol/L (98-107); Estimated GFR-MDRD 85; Glucose 100 mg/dL (70-105); Potassium 3.6 mmol/L (3.5-5.1); Sodium 139 mmol/L (136-145)
[2019-06-15] MEDS ORDERED: Potassium Chloride 20 MEQ TAB ONE (16:13)
[2019-06-15] MEDS ORDERED: Furosemide 100 MG/10 ML VIAL ONE (16:13)
== END 2019-06-15 16:51 | disposition home or self-care (01) ==
LOC: ERS 15:01
DX: R60.0 Localized edema (principal); E11.40 Type 2 diabetes mellitus with diabetic neuropathy, unspecified; I10 Essential (primary) hypertension; M79.7 Fibromyalgia; M19.90 Unspecified osteoarthritis, unspecified site; D64.9 Anemia, unspecified; F41.9 Anxiety disorder, unspecified; F32.9 Major depressive disorder, single episode, unspecified; F90.9 Attention-deficit hyperactivity disorder, unspecified type; Z79.899 Other long term (current) drug therapy
CPT/HCPCS: 36415; 80048; 85025; 93005; 96372; J1940

== ENCOUNTER 2025-03-22 10:07 | Inpatient (IN) | payer OTHER ==
[2025-03-22] MEDS ORDERED: Glucagon 1 MG/ML KIT ONE ×3 (10:11→12:13)
[2025-03-22] MEDS ORDERED: NOREPINEPHRINE 8 MG/250 ML-D5W 250 ML ONE (10:28)
[2025-03-22 10:49] LABS: #Basophils 0.03 10x3/uL (0.0-0.2); #Eosinophils 0.08 10x3/uL (0.0-0.7); #Monocytes 0.49 10x3/uL (0.11-0.59); #Neutrophils 3.58 10x3/uL (1.40-6.50); %Basophils 0.5 % (0.0-1.0); %Eosinophils 1.4 % (0.0-10.0); %Lymphocytes 24.1 % (21.0-51.0); %Monocytes 8.9 % (0.0-10.0); %Neutrophils 64.7 % (42.0-75.0); Hematocrit 37.7 % (36.0-47.0); Hemoglobin 12.4 g/dL (12.0-16.0); Mean Corpuscular Hemoglobin 30.6 pg (27.0-31.0); Mean Corpuscular Volume 93.1 fL (78.0-98.0); Platelet Count 189 10x3/uL (130-400); Red Blood Cell (RBC) Count 4.05 mill/uL (4.20-5.40); White Blood Cell (WBC) Count 5.53 10x3/uL (4.8-10.8)
[2025-03-22 11:10] LABS: ALT (SGPT) 178 U/L (Less than 34); AST (SGOT) 276 U/L (11-34); Albumin 2.9 g/dL (3.1-4.5); Alkaline Phosphatase 226 U/L (40-110); Anion Gap 16 mmol/L (10-20); BUN (Urea Nitrogen) 16 mg/dL (9.8-20.1); Bilirubin, Total 0.3 mg/dL (0.3-1.2); Calc. Creatinine Clearance 0 mL/min (70-130); Calcium 7.8 mg/dL (7.8-10.44); Carbon Dioxide 15 mmol/L (22-29); Chloride 105 mmol/L (98-107); Globulin 2.8 g/dL (2.4-3.5); Glucose 206 mg/dL (70-105); Magnesium 1.5 mg/dL (1.6-2.6); Potassium 3.8 mmol/L (3.5-5.1); Sodium 132 mmol/L (136-145)
[2025-03-22 11:11] LABS: Acetaminophen Less than 10 mcg/mL (Less than 10); Salicylate Less than 8.0 mg/dL (Less than 8.0)
[2025-03-22 11:25] LABS: Cocaine Metabolite Screen Negative (Negative); THC/Cannabinoid Screen Negative (Negative); Tricyclic Screen Negative (Negative)
[2025-03-22 11:42] LABS: INR-International Normal Ratio 2.2; PTT 41.1 sec (22.9-36.1); Prothrombin Time 24.3 sec (12.0-14.7)
[2025-03-22] MEDS ORDERED: INSULIN REGULAR IN 0.9 % NACL 100 ML ONE (12:13)
[2025-03-22] MEDS ORDERED: Glucagon 1 MG/ML KIT IM PRN (12:30)
[2025-03-22] MEDS ORDERED: INSULIN REGULAR IN 0.9 % NACL 100 ML IVPB SCH (12:30)
[2025-03-22] MEDS ORDERED: Ondansetron PF 4 MG/2 ML Vial IVP PRN (12:30)
[2025-03-22] MEDS ORDERED: Dextrose 50% Abboject 50 ML SYRINGE SLOW IVP PRN (12:30)
[2025-03-22] MEDS ORDERED: Electrolyte Replacement Protocol 1 EACH FS SCH (12:30)
[2025-03-22] MEDS ORDERED: Acetaminophen 500 MG TAB PO PRN (12:30)
[2025-03-22] MEDS ORDERED: Ondansetron PF 4 MG/2 ML Vial ONE (12:33)
[2025-03-22] MEDS ORDERED: Scopolamine 1 mg/72 hour Patch TD PRN (14:14)
[2025-03-22 14:43] LABS: ALT (SGPT) 182 U/L (Less than 34); AST (SGOT) 217 U/L (11-34); Albumin 3.2 g/dL (3.1-4.5); Alkaline Phosphatase 237 U/L (40-110); Anion Gap 16 mmol/L (10-20); BUN (Urea Nitrogen) 21 mg/dL (9.8-20.1); Bilirubin, Total 0.3 mg/dL (0.3-1.2); CK (CPK) 68 U/L (29-168); Calc. Creatinine Clearance 0 mL/min (70-130); Calcium 8.5 mg/dL (7.8-10.44); Carbon Dioxide 18 mmol/L (22-29); Chloride 103 mmol/L (98-107); Globulin 2.6 g/dL (2.4-3.5); Glucose 384 mg/dL (70-105); Potassium 3.8 mmol/L (3.5-5.1); Sodium 133 mmol/L (136-145)
[2025-03-22] MEDS ORDERED: Famotidine/PF 20 mg/2ml Vial ONE (15:22)
[2025-03-22] MEDS ORDERED: diphenhydrAMINE 50 MG/ML VIAL ONE (15:22)
[2025-03-22] MEDS ORDERED: EPINEPHrine 1 MG/10 ML Abboject SYRINGE ONE (15:30)
[2025-03-22] MEDS ORDERED: Etomidate 40 MG (20 mL) VIAL ONE (15:30)
[2025-03-22] MEDS ORDERED: Rocuronium Bromide 10 MG/ML (10ML VIAL) ONE (15:31)
[2025-03-22 17:51] LABS: Magnesium 1.4 mg/dL (1.6-2.6)
[2025-03-22 17:52] LABS: ALT (SGPT) 170 U/L (Less than 34); AST (SGOT) 162 U/L (11-34); Albumin 3.3 g/dL (3.1-4.5); Alkaline Phosphatase 227 U/L (40-110); Anion Gap 11 mmol/L (10-20); BUN (Urea Nitrogen) 23 mg/dL (9.8-20.1); Bilirubin, Total 0.2 mg/dL (0.3-1.2); Calc. Creatinine Clearance 0 mL/min (70-130); Calcium 8.3 mg/dL (7.8-10.44); Carbon Dioxide 19 mmol/L (22-29); Chloride 107 mmol/L (98-107); Globulin 2.4 g/dL (2.4-3.5); Glucose 269 mg/dL (70-105); Potassium 3.6 mmol/L (3.5-5.1); Sodium 133 mmol/L (136-145)
[2025-03-22 17:53] LABS: INR-International Normal Ratio 1.1; PTT 29.4 sec (22.9-36.1); Prothrombin Time 14.2 sec (12.0-14.7)
[2025-03-22] MEDS: Magnesium 2 GM/50 ML(in water) 2 GM in Premix 1 BAG IVPB SCH ×2 (19:22→19:25)
[2025-03-22] MEDS: Pantoprazole 40 MG VIAL IVP SCH (20:46)
[2025-03-22] MEDS ORDERED: Famotidine/PF 20 mg/2ml Vial SLOW IVP SCH (21:00)
[2025-03-22 22:09] LABS: ALT (SGPT) 165 U/L (Less than 34); AST (SGOT) 123 U/L (11-34); Albumin 3.3 g/dL (3.1-4.5); Alkaline Phosphatase 230 U/L (40-110); Anion Gap 9 mmol/L (10-20); BUN (Urea Nitrogen) 21 mg/dL (9.8-20.1); Bilirubin, Total 0.2 mg/dL (0.3-1.2); Calc. Creatinine Clearance 77 mL/min (70-130); Calcium 8.4 mg/dL (7.8-10.44); Carbon Dioxide 16 mmol/L (22-29); Chloride 110 mmol/L (98-107); Globulin 2.5 g/dL (2.4-3.5); Glucose 262 mg/dL (70-105); Magnesium 2.3 mg/dL (1.6-2.6); Potassium 3.4 mmol/L (3.5-5.1); Sodium 132 mmol/L (136-145)
[2025-03-22 23:55] LABS: INR-International Normal Ratio 1.2; PTT 30.2 sec (22.9-36.1); Prothrombin Time 15.1 sec (12.0-14.7)
[2025-03-23 01:50] LABS: ALT (SGPT) 157 U/L (Less than 34); AST (SGOT) 108 U/L (11-34); Albumin 3.2 g/dL (3.1-4.5); Alkaline Phosphatase 222 U/L (40-110); Anion Gap 14 mmol/L (10-20); BUN (Urea Nitrogen) 20 mg/dL (9.8-20.1); Bilirubin, Total 0.1 mg/dL (0.3-1.2); Calc. Creatinine Clearance 79 mL/min (70-130); Calcium 8.3 mg/dL (7.8-10.44); Carbon Dioxide 17 mmol/L (22-29); Chloride 106 mmol/L (98-107); Globulin 2.7 g/dL (2.4-3.5); Glucose 272 mg/dL (70-105); Potassium 3.4 mmol/L (3.5-5.1); Sodium 134 mmol/L (136-145)
[2025-03-23 04:36] LABS: INR-International Normal Ratio 1.4; Prothrombin Time 17.5 sec (12.0-14.7)
[2025-03-23 04:38] LABS: #Basophils Less than 0.03 10x3/uL (0.0-0.2); #Eosinophils Less than 0.03 10x3/uL (0.0-0.7); #Monocytes 0.08 10x3/uL (0.11-0.59); #Neutrophils 7.04 10x3/uL (1.40-6.50); %Basophils 0.1 % (0.0-1.0); %Eosinophils 0.0 % (0.0-10.0); %Lymphocytes 7.1 % (21.0-51.0); %Monocytes 1.0 % (0.0-10.0); %Neutrophils 91.5 % (42.0-75.0); Hematocrit 37.5 % (36.0-47.0); Hemoglobin 12.2 g/dL (12.0-16.0); Mean Corpuscular Hemoglobin 30.4 pg (27.0-31.0); Mean Corpuscular Volume 93.5 fL (78.0-98.0); Platelet Count 157 10x3/uL (130-400); Red Blood Cell (RBC) Count 4.01 mill/uL (4.20-5.40); White Blood Cell (WBC) Count 7.70 10x3/uL (4.8-10.8)
[2025-03-23 04:42] LABS: ALT (SGPT) 148 U/L (Less than 34); AST (SGOT) 89 U/L (11-34); Albumin 3.2 g/dL (3.1-4.5); Alkaline Phosphatase 221 U/L (40-110); Anion Gap 14 mmol/L (10-20); BUN (Urea Nitrogen) 19 mg/dL (9.8-20.1); Bilirubin, Total 0.1 mg/dL (0.3-1.2); Calc. Creatinine Clearance 79 mL/min (70-130); Calcium 8.2 mg/dL (7.8-10.44); Carbon Dioxide 20 mmol/L (22-29); Chloride 108 mmol/L (98-107); Globulin 2.6 g/dL (2.4-3.5); Glucose 281 mg/dL (70-105); Magnesium 2.2 mg/dL (1.6-2.6); Potassium 3.6 mmol/L (3.5-5.1); Sodium 138 mmol/L (136-145)
[2025-03-23 05:07] LABS: Hep A IgM AB NONREACTIVE (NonReactive); Hep A IgM S/CO 0.13 S/CO (0-0.79); Hep B Core IgM Index 0.07 S/CO (0-0.79); Hep B Surf Ag NONREACTIVE S/CO (NonReactive); Hep C IgG Ab NONREACTIVE S/CO (NonReactive); Hep C Index 0.09 S/CO (0-0.79)
[2025-03-23 06:09] LABS: ALT (SGPT) 144 U/L (Less than 34); AST (SGOT) 84 U/L (11-34); Albumin 3.1 g/dL (3.1-4.5); Alkaline Phosphatase 216 U/L (40-110); Anion Gap 13 mmol/L (10-20); BUN (Urea Nitrogen) 17 mg/dL (9.8-20.1); Bilirubin, Total 0.1 mg/dL (0.3-1.2); Calc. Creatinine Clearance 86 mL/min (70-130); Calcium 8.2 mg/dL (7.8-10.44); Carbon Dioxide 18 mmol/L (22-29); Chloride 108 mmol/L (98-107); Globulin 2.7 g/dL (2.4-3.5); Glucose 261 mg/dL (70-105); INR-International Normal Ratio 1.4; PTT 32.3 sec (22.9-36.1); Potassium 3.6 mmol/L (3.5-5.1); Prothrombin Time 17.4 sec (12.0-14.7); Sodium 135 mmol/L (136-145)
[2025-03-23] MEDS ORDERED: Dextroamphetamine/Amphetamine [Adderall 20 Mg Tablet] PO SCH (09:00)
[2025-03-23 09:20] LABS: ALT (SGPT) 132 U/L (Less than 34); AST (SGOT) 71 U/L (11-34); Albumin 3.0 g/dL (3.1-4.5); Alkaline Phosphatase 202 U/L (40-110); Anion Gap 11 mmol/L (10-20); BUN (Urea Nitrogen) 16 mg/dL (9.8-20.1); Bilirubin, Total 0.1 mg/dL (0.3-1.2); Calc. Creatinine Clearance 87 mL/min (70-130); Calcium 8.1 mg/dL (7.8-10.44); Carbon Dioxide 19 mmol/L (22-29); Chloride 110 mmol/L (98-107); Globulin 2.7 g/dL (2.4-3.5); Glucose 237 mg/dL (70-105); Magnesium 2.0 mg/dL (1.6-2.6); Potassium 3.6 mmol/L (3.5-5.1); Sodium 136 mmol/L (136-145)
[2025-03-23] MEDS ORDERED: Hyoscyamine SL 0.125 MG TAB PO PRN (14:33)
[2025-03-23] MEDS: Magnesium 2 GM/50 ML(in water) 2 GM in Premix 1 BAG IVPB SCH (14:53)
[2025-03-23 15:15] LABS: Magnesium 1.9 mg/dL (1.6-2.6)
[2025-03-23] MEDS: Scopolamine 1 mg/72 hour Patch TD SCH (16:49)
[2025-03-23] MEDS: NOREPINEPHRINE 8 MG/250 ML-D5W 250 ML IVPB SCH (19:12)
[2025-03-23] MEDS: Dicyclomine 10 MG CAP PO SCH (20:32)
[2025-03-24 05:02] LABS: #Basophils Less than 0.03 10x3/uL (0.0-0.2); #Eosinophils Less than 0.03 10x3/uL (0.0-0.7); #Monocytes 0.50 10x3/uL (0.11-0.59); #Neutrophils 6.77 10x3/uL (1.40-6.50); %Basophils 0.1 % (0.0-1.0); %Eosinophils 0.2 % (0.0-10.0); %Lymphocytes 11.6 % (21.0-51.0); %Monocytes 6.0 % (0.0-10.0); %Neutrophils 81.7 % (42.0-75.0); Hematocrit 34.0 % (36.0-47.0); Hemoglobin 11.0 g/dL (12.0-16.0); Mean Corpuscular Hemoglobin 31.0 pg (27.0-31.0); Mean Corpuscular Volume 95.8 fL (78.0-98.0); Platelet Count 186 10x3/uL (130-400); Red Blood Cell (RBC) Count 3.55 mill/uL (4.20-5.40); White Blood Cell (WBC) Count 8.29 10x3/uL (4.8-10.8)
[2025-03-24 05:17] LABS: ALT (SGPT) 89 U/L (Less than 34); AST (SGOT) 38 U/L (11-34); Albumin 2.8 g/dL (3.1-4.5); Alkaline Phosphatase 161 U/L (40-110); Anion Gap 8 mmol/L (10-20); BUN (Urea Nitrogen) 16 mg/dL (9.8-20.1); Bilirubin, Total 0.1 mg/dL (0.3-1.2); Calc. Creatinine Clearance 91 mL/min (70-130); Calcium 7.6 mg/dL (7.8-10.44); Carbon Dioxide 24 mmol/L (22-29); Chloride 108 mmol/L (98-107); Globulin 2.4 g/dL (2.4-3.5); Glucose 207 mg/dL (70-105); Potassium 3.6 mmol/L (3.5-5.1); Sodium 136 mmol/L (136-145)
[2025-03-24 05:33] VITALS: BMI 37.8
[2025-03-24] MEDS: BuPROPion XL 150 MG ER.TAB PO SCH (08:40)
[2025-03-24] MEDS ORDERED: Metoprolol Succinate XL 25 MG ER.TAB PO SCH (09:00)
[2025-03-24] MEDS ORDERED: Lisinopril 20 MG TAB PO SCH (09:00)
[2025-03-24] MEDS: diphenhydrAMINE 50 MG/ML VIAL IVP SCH (20:50)
[2025-03-25] MEDS: diphenhydrAMINE 50 MG/ML VIAL IVP PRN (03:42)
[2025-03-25 04:14] LABS: #Basophils Less than 0.03 10x3/uL (0.0-0.2); #Eosinophils 0.15 10x3/uL (0.0-0.7); #Monocytes 0.38 10x3/uL (0.11-0.59); #Neutrophils 3.77 10x3/uL (1.40-6.50); %Basophils 0.4 % (0.0-1.0); %Eosinophils 2.8 % (0.0-10.0); %Lymphocytes 18.1 % (21.0-51.0); %Monocytes 7.2 % (0.0-10.0); %Neutrophils 71.1 % (42.0-75.0); Hematocrit 37.4 % (36.0-47.0); Hemoglobin 11.9 g/dL (12.0-16.0); Mean Corpuscular Hemoglobin 30.7 pg (27.0-31.0); Mean Corpuscular Volume 96.4 fL (78.0-98.0); Platelet Count 157 10x3/uL (130-400); Red Blood Cell (RBC) Count 3.88 mill/uL (4.20-5.40); White Blood Cell (WBC) Count 5.30 10x3/uL (4.8-10.8)
[2025-03-25 04:25] LABS: Anion Gap 12 mmol/L (10-20); BUN (Urea Nitrogen) 14 mg/dL (9.8-20.1); Calc. Creatinine Clearance 90 mL/min (70-130); Calcium 8.0 mg/dL (7.8-10.44); Carbon Dioxide 22 mmol/L (22-29); Cardiac Risk 2.6 (Less than 4.5); Chloride 109 mmol/L (98-107); Cholesterol 118 mg/dl (< 200 Desired); Glucose 195 mg/dL (70-105); HDL Cholesterol 46 mg/dL (>60 Neg Risk); LDL Cholesterol, Calculated 48 mg/dL; Magnesium 1.7 mg/dL (1.6-2.6); Potassium 3.3 mmol/L (3.5-5.1); Sodium 140 mmol/L (136-145); Triglycerides 120 mg/dL (Less than 150)
[2025-03-25] MEDS: Magnesium 2 GM/50 ML(in water) 2 GM in Premix 1 BAG IVPB SCH (07:41)
[2025-03-25] MEDS: Potassium Bicarbonate/Cit Ac 20 MEQ TAB PO SCH (07:42)
[2025-03-25] MEDS: Lisinopril 20 MG TAB PO SCH (14:57)
[2025-03-25] MEDS: ALPRAZolam 0.25 MG TAB PO PRN (15:15)
[2025-03-25] MEDS: hydrALAZINE 20 MG/ML VIAL SLOW IVP PRN (18:56)
[2025-03-26 05:33] LABS: #Basophils Less than 0.03 10x3/uL (0.0-0.2); #Eosinophils 0.19 10x3/uL (0.0-0.7); #Monocytes 0.37 10x3/uL (0.11-0.59); #Neutrophils 3.44 10x3/uL (1.40-6.50); %Basophils 0.2 % (0.0-1.0); %Eosinophils 3.7 % (0.0-10.0); %Lymphocytes 21.9 % (21.0-51.0); %Monocytes 7.2 % (0.0-10.0); %Neutrophils 66.6 % (42.0-75.0); Hematocrit 37.4 % (36.0-47.0); Hemoglobin 11.9 g/dL (12.0-16.0); Mean Corpuscular Hemoglobin 30.3 pg (27.0-31.0); Mean Corpuscular Volume 95.2 fL (78.0-98.0); Platelet Count 167 10x3/uL (130-400); Red Blood Cell (RBC) Count 3.93 mill/uL (4.20-5.40); White Blood Cell (WBC) Count 5.16 10x3/uL (4.8-10.8)
[2025-03-26 05:49] LABS: Anion Gap 11 mmol/L (10-20); BUN (Urea Nitrogen) 8 mg/dL (9.8-20.1); Calc. Creatinine Clearance 112 mL/min (70-130); Calcium 8.5 mg/dL (7.8-10.44); Carbon Dioxide 25 mmol/L (22-29); Chloride 107 mmol/L (98-107); Glucose 168 mg/dL (70-105); Potassium 4.1 mmol/L (3.5-5.1); Sodium 139 mmol/L (136-145)
[2025-03-26] MEDS ORDERED: Barium Sulfate 96% 176 GM BOT (xray ONLY) ONE (06:56)
[2025-03-26] MEDS ORDERED: E-Z-HD 98% W/W 340GM BOT (x-ray ONLY) ONE (06:56)
[2025-03-26] MEDS ORDERED: MD-Gastroview 120 ML BOT ONE (06:56)
[2025-03-26] MEDS: Lisinopril 20 MG TAB PO SCH (09:38)
[2025-03-26] MEDS: Metoprolol Tartrate 5 MG (5 mL) VIAL IVP SCH ×2 (21:34→21:38)
[2025-03-28 16:03] VITALS: BP 152/96; TEMP 98.8
[2025-03-30] MEDS ORDERED: Ergocalciferol 1.25 MG(50,000 UNITS) CAP PO SCH (09:00)
== END 2025-03-28 19:52 | DRG 917 ==
LOC: ERS 10:07 → ERHOLD 12:30 → MSONC 15:50 → CCU 16:08 → MSONC 03-25 14:36 → PCU 03-26 21:06
PROVIDERS: ADMIT Family Medicine; ATTEND Hospitalist
PROC: 3E033XZ Introduction of Vasopressor into Peripheral Vein, Percutaneous Approach (ICD-10-PCS; principal; 2025-03-22)
DX: T44.7X2A Poisoning by beta-adrenoreceptor antagonists, intentional self-harm, initial encounter (principal); G92.8 Other toxic encephalopathy; R57.8 Other shock; R45.851 Suicidal ideations; E87.1 Hypo-osmolality and hyponatremia; F33.9 Major depressive disorder, recurrent, unspecified; J95.811 Postprocedural pneumothorax; Z98.890 Other specified postprocedural states; I95.9 Hypotension, unspecified; N18.30 Chronic kidney disease, stage 3 unspecified; E11.22 Type 2 diabetes mellitus with diabetic chronic kidney disease; M19.90 Unspecified osteoarthritis, unspecified site; E11.40 Type 2 diabetes mellitus with diabetic neuropathy, unspecified; E66.9 Obesity, unspecified; F41.9 Anxiety disorder, unspecified; Y84.9 Medical procedure, unspecified as the cause of abnormal reaction of the patient, or of later complication, without mention of misadventure at the time of the procedure; K58.9 Irritable bowel syndrome, unspecified; F90.9 Attention-deficit hyperactivity disorder, unspecified type; E11.65 Type 2 diabetes mellitus with hyperglycemia; E83.42 Hypomagnesemia; I12.9 Hypertensive chronic kidney disease with stage 1 through stage 4 chronic kidney disease, or unspecified chronic kidney disease; Z90.49 Acquired absence of other specified parts of digestive tract; Z98.891 History of uterine scar from previous surgery; Z98.51 Tubal ligation status; Z98.84 Bariatric surgery status; Z88.2 Allergy status to sulfonamides; Z88.0 Allergy status to penicillin; Z88.8 Allergy status to other drugs, medicaments and biological substances; Z91.041 Radiographic dye allergy status; Z88.5 Allergy status to narcotic agent; Z68.36 Body mass index [BMI] 36.0-36.9, adult; Z79.899 Other long term (current) drug therapy
CPT/HCPCS: 36415; 36416; 36556; 51702; 70450; 70490; 71045; 71250; 74177; 74220; 80048; 80053; 80061; 80074; 80306; 80307; 82550; 83036; 83690; 83735; 84443; 84484; 85025; 85610; 85730; 93005; 93010; 93923; 96365; 96374; 96375; J0165; J0169; J0360; J1200; J1308; J1611; J1815; J2060; J2250; J2270; J2405; J2470; J2919; J3475; J3486; J7030; Q9963

== ENCOUNTER 2025-06-09 23:21 | Emergency (ER) | payer OTHER, SELFPAY ==
[2025-06-10 00:08] LABS: BHCG - Serum Negative (NEGATIVE); Pregs Control Background? CLEAR/WHITE (CLR/WHITE); Pregs Control Bar Appear? YES (CONTROL BAR)
[2025-06-10 00:15] LABS: Lipase 31 U/L (8-78); Magnesium 2.1 mg/dL (1.6-2.6)
[2025-06-10 00:16] LABS: Acetaminophen Less than 10 mcg/mL (Less than 10); Salicylate Less than 8.0 mg/dL (Less than 8.0)
[2025-06-10 00:17] LABS: ALT (SGPT) 32 U/L (Less than 34); AST (SGOT) 27 U/L (11-34); Albumin 3.9 g/dL (3.1-4.5); Alkaline Phosphatase 155 U/L (40-110); Anion Gap 18 mmol/L (10-20); BUN (Urea Nitrogen) 28 mg/dL (9.8-20.1); Bilirubin, Total 0.2 mg/dL (0.3-1.2); CK (CPK) 52 U/L (29-168); Calc. Creatinine Clearance 0 mL/min (70-130); Calcium 8.4 mg/dL (7.8-10.44); Carbon Dioxide 16 mmol/L (22-29); Chloride 108 mmol/L (98-107); Globulin 2.9 g/dL (2.4-3.5); Glucose 150 mg/dL (70-105); Potassium 4.0 mmol/L (3.5-5.1); Sodium 138 mmol/L (136-145)
[2025-06-10 00:29] LABS: #Basophils 0.03 10x3/uL (0.0-0.2); #Eosinophils Less than 0.03 10x3/uL (0.0-0.7); #Monocytes 0.46 10x3/uL (0.11-0.59); #Neutrophils 7.42 10x3/uL (1.40-6.50); %Basophils 0.3 % (0.0-1.0); %Eosinophils 0.1 % (0.0-10.0); %Lymphocytes 11.3 % (21.0-51.0); %Monocytes 5.1 % (0.0-10.0); %Neutrophils 82.8 % (42.0-75.0); Hematocrit 38.0 % (36.0-47.0); Hemoglobin 12.2 g/dL (12.0-16.0); Mean Corpuscular Hemoglobin 28.4 pg (27.0-31.0); Mean Corpuscular Volume 88.4 fL (78.0-98.0); Platelet Count 257 10x3/uL (130-400); Red Blood Cell (RBC) Count 4.30 mill/uL (4.20-5.40); White Blood Cell (WBC) Count 8.97 10x3/uL (4.8-10.8)
[2025-06-10 01:08] LABS: INR-International Normal Ratio 1.0; Prothrombin Time 13.4 sec (12.0-14.7)
[2025-06-10 01:54] LABS: Cocaine Metabolite Screen Negative (Negative); THC/Cannabinoid Screen Negative (Negative); Tricyclic Screen Negative (Negative)
[2025-06-10 09:10] LABS: Anion Gap 11 mmol/L (10-20); BUN (Urea Nitrogen) 22 mg/dL (9.8-20.1); Calc. Creatinine Clearance 0 mL/min (70-130); Calcium 7.6 mg/dL (7.8-10.44); Carbon Dioxide 18 mmol/L (22-29); Chloride 112 mmol/L (98-107); Glucose 92 mg/dL (70-105); Potassium 3.2 mmol/L (3.5-5.1); Sodium 138 mmol/L (136-145)
[2025-06-10] MEDS ORDERED: Potassium Bicarbonate/Cit Ac 20 MEQ TAB ONE (15:33)
== END 2025-06-09 23:45 ==
LOC: ERS 23:21
DX: T39.312A Poisoning by propionic acid derivatives, intentional self-harm, initial encounter (principal); T39.1X2A Poisoning by 4-Aminophenol derivatives, intentional self-harm, initial encounter; T42.6X2A Poisoning by other antiepileptic and sedative-hypnotic drugs, intentional self-harm, initial encounter; T47.1X2A Poisoning by other antacids and anti-gastric-secretion drugs, intentional self-harm, initial encounter; T46.6X2A Poisoning by antihyperlipidemic and antiarteriosclerotic drugs, intentional self-harm, initial encounter; I10 Essential (primary) hypertension; E11.42 Type 2 diabetes mellitus with diabetic polyneuropathy
CPT/HCPCS: 36415; 80048; 80053; 80306; 80307; 82550; 83690; 83735; 84703; 85025; 85610; 96360; 96361; 96372; J1630; J2060